=== PATIENT | male | born 1995 | race Caucasian/White ===

== ENCOUNTER 2022-07-28 14:06 | Emergency (ER) | payer MEDICAID, SELFPAY ==
--- NOTE | ~2022-07-28 | XR_ITS ---
EXAMINATION: XR CHEST CLINICAL INFORMATION: Chest pain COMPARISON: None TECHNIQUE: Frontal view of the chest was obtained. FINDINGS: No significant abnormality is noted involving the heart, lungs, mediastinum, bony thorax or soft tissues. XR/XR chest 1V IMPRESSION: No radiographic evidence of acute cardiopulmonary disease.
[2022-07-28 15:04] VITALS: BP 151/90; PULSE 87; RESP 16; TEMP 36.6; O2SAT 99; BMI 25.7
--- NOTE | 2022-07-28 15:04 | ECG_ITS ---
Test Reason : cx pain/ sob Blood Pressure : / mmHG Vent. Rate : 076 BPM Atrial Rate : 076 BPM P-R Int : 140 ms QRS Dur : 086 ms QT Int : 356 ms P-R-T Axes : 044 -06 023 degrees QTc Int : 400 ms Sinus rhythm with marked sinus arrhythmia Minimal voltage criteria for LVH, may be normal variant ( R in aVL ) Borderline ECG No previous ECGs available Referred By: Derek Kim Electronically Signed By:NISHA MCGEE MD
--- NOTE | 2022-07-28 15:06 | ED_ITS ---
HPI - General Adult General Chief complaint: Chest Pain <TAQUERIA Valle - Last Filed: 07/28/22 20:21> Stated complaint: SOB/Chest pain/Fever-marisela <TAQUERIA Valle - Last Filed: 07/28/22 20:21> Time Seen by Provider: 07/28/22 19:20 <TAQUERIA Valle - Last Filed: 07/28/22 20:21> Source: patient <Zainab Fierro CNP - Last Filed: 07/28/22 20:22> Mode of arrival: wheelchair <Zainab Fierro CNP - Last Filed: 07/28/22 20:22> Limitations: no limitations <Zainab Fierro CNP - Last Filed: 07/28/22 20:22> History of Present Illness HPI narrative: Patient is a 27-year-old male who presents to the emergency department for evaluation of chest pain and shortness of breath. He reports at 22:00 he noted onset of left anterior chest pain with intermittent mild shortness of breath this. He began feeling anxious about this. He presented to emergency department today to have evaluation. He is wheelchair-bound due to spina bifida, 2 days ago he was on a 5 hour flight. Denies any known sick contacts, no upper respiratory symptoms. Denies personal history of DVT/PE/malignancy, tobacco usage, coagulation disorders, use of anticoagulant medications. Denies any leg pain, leg swelling, leg redness. <Zainab Fierro CNP - Last Filed: 07/28/22 20:22> Related Data Allergies/adverse reactions: Allergies Allergy/AdvReac Type Severity Reaction Status Date / Time latex Allergy rash Verified 07/28/22 19:29 <TAQUERIA Valle - Last Filed: 07/28/22 20:21> Review of Systems Review of Systems: Constitutional : No Weight loss, No Fever, No Chills ENT/Mouth :? No sore throat, No Rhinorrhea Eyes: No Eye Pain, No Swelling Cardiovascular : pos Chest Pain, pos SOB, no Dyspnea on Exertion, No Orthopnea, No Edema, No Palpitations Respiratory : No Cough, No Sputum Gastrointestinal : No Nausea, No Vomiting, No Diarrhea, No abdominal Pain, No Hematochezia, No Melena Genitourinary : No Dysuria, No Urinary Frequency Musculoskeletal : No joint pain, No Myalgias, No Joint Swelling Skin : No Skin Lesions, No rash Neuro : No Weakness, No Numbness, No Dizziness, No Headache Psych : No Anxiety/Panic, No Depression Heme/Lymph: No Bruising, No Lymphadenopathy Endocrine : No Polyuria, No Polydipsia <Zainab Fierro CNP - Last Filed: 07/28/22 20:22> Yes all other systems are reviewed and are negative <Zainab Fierro CNP - Last Filed: 07/28/22 20:22> [facility] Past Medical History Attestation statement: The following information was validated with the patient. <Zainab Fierro CNP - Last Filed: 07/28/22 20:22> Source: old records reviewed <Zainab Fierro CNP - Last Filed: 07/28/22 20:22> Medical History: Medical History Asthma Spina bifida <TAQUERIA Valle - Last Filed: 07/28/22 20:21> Social History Social History: Social History Alcohol intake: current Alcohol intake frequency: a few times a week Smoked in Last 30 Days: No Use of substances other than those prescribed or required for medical reasons: Yes Substance Use Type: Marijuana Substance Use Frequency: Daily Advance Directives: No Advance Directives Information Provided: Yes <TAQUERIA Valle - Last Filed: 07/28/22 20:21> Physical Exam ED Vital Signs: Vital Signs - 24 hr 07/28/22 15:04 07/28/22 19:31 Temperature 97.8 F 98 F Pulse Rate 87 78 Respiratory Rate 16 Blood Pressure 151/90 H 142/88 H Pulse Oximetry 99 99 Oxygen Delivery Method Room Air Room Air BMI result Body Mass Index 25.7 <TAQUERIA Valle - Last Filed: 07/28/22 20:21> Vital Signs - 24 hr 07/28/22 15:04 07/28/22 19:31 Temperature 97.8 F 98 F Pulse Rate 87 78 Respiratory Rate 16 Blood Pressure 151/90 H 142/88 H Pulse Oximetry 99 99 Oxygen Delivery Method Room Air Room Air BMI result Body Mass Index 25.7 <Zainab Fierro CNP - Last Filed: 07/28/22 20:22> Appearance: Alert.?Oriented to person, place and time. No acute distress.?Normal affect. Eyes: Pupils equal, round and reactive to light.? ENT: Pharynx normal.?? Neck: Normal inspection.? Neck supple.?? CVS: Heart sounds normal. Normal heart rate and rhythm.? Pulses normal.?? Respiratory: No respiratory distress.? Lung sounds clear to auscultation bilaterally?? Abdomen: Soft and non-tender. Normoactive bowel sounds. Skin: Skin warm and dry.? Normal skin color.? Extremities: No lower extremity edema.? No calf ttp? Neuro: Moves all extremities spontaneously. Sensation intact bilaterally. No focal neuro deficits. <Zainab Fierro CNP - Last Filed: 07/28/22 20:22> Course Course Course Narrative: RME: 27 yold male with spina bifida presents to the ED for chest pain and shortness of breath this morning. patient had a long travel 5 hours plane flight on wednesday coming to [facility]. patient states no leg swelling. lower extremities negative for any swelling, pitting edema, or calf tenderness. labs, chest xray, and EkG ordered <TAQUERIA Valle - Last Filed: 07/28/22 20:21> Reevaluation(s) Reevaluation #1: CBC and CMP are overall unremarkable. No evidence of leukocytosis, anemia, acute kidney injury. D-dimer <150, not consistent with pulmonary embolism. Viral testing is negative. Chest x-ray without acute cardiopulmonary process, not consistent with pneumonia. EKG revealing sinus rhythm, no acute ischemic findings, troponin <3.5, not consistent with ACS. At this time suspect symptoms to be most likely secondary to muscular strain. Discussed plan of care for discharge home, acetaminophen/ibuprofen, ice/heat to the area. Reviewed worrisome signs and symptoms that would warrant re-evaluation in the emergency department. Advised outpatient follow-up with primary care provider within 2-3 days for persistent symptoms. All questions answered. Patient stable for discharge. <Zainab Fierro CNP - Last Filed: 07/28/22 20:22> Medical Decision Making Medical Decision Making MDM Narrative: Patient is a 27-year-old male with past medical history of spina bifida, childhood asthma presenting to emergency department for evaluation of chest pain and shortness or breath. At the time examination he is overall well-appearing. Vital signs are stable. Afebrile without tachycardia, tachypnea, or hypoxia. Physical examination is benign. Chest pain is localized to point tenderness just beneath the left areola. At this time he states that the pain is very minimal in only felt upon palpation, in currently denying shortness of breath. Will obtain CBC to evaluate for leukocytosis/ anemia, CMP to evaluate for abnormal electrolytes /abnormal renal function/ abnormal hepatic/biliary, EKG/ troponin to evaluate for ischemia/ACS, D-dimer, Chest x-ray to evaluate for consolidation/ infiltrate/ mass/ pulmonary congestion.. <Zainab Fierro CNP - Last Filed: 07/28/22 20:22> Differential Diagnosis Differential Diagnoses: The differential diagnosis associated with the presentation includes (Pulmonary embolism, pneumonia, viral upper respiratory infection, musculoskeletal strain of the chest wall, ACS) <Zainab Fierro CNP - Last Filed: 07/28/22 20:22> Lab Data MDM Lab Attestation statement: I reviewed the patient's lab results. <Zainab Fierro CNP - Last Filed: 07/28/22 20:22> Result Diagrams: 07/28/22 15:20 07/28/22 15:20 <TAQUERIA Valle - Last Filed: 07/28/22 20:21> Labs: Lab Results 07/28/22 07/28/22 07/28/22 Range/Units 15:20 15:20 15:20 WBC 7.0 (4.8-10.8) X10*3/uL RBC 5.31 (4.60-5.80) X10*6/uL Hgb 16.7 (14.0-18.0) g/dl Hct 48.7 (42.0-52.0) % MCV 91.7 (80.0-98.0) fL MCH 31.5 (27.0-33.0) pg MCHC 34.3 (31.0-36.0) g/dl RDW 12.1 (11.0-16.0) % Plt Count 292 (160-400) X10*3/uL MPV 8.9 L (9.4-12.4) fL Immature Gran % (Auto) 0.1 (0.0-0.4) % Neut % (Auto) 66.5 (45-73) % Lymph % (Auto) 26.3 (20-40) % Mcnairy % (Auto) 5.4 (2-11) % Eos % (Auto) 1.3 (0-4) % Baso % (Auto) 0.4 (0-2) % Lymph # (Auto) 1.8 (1.2-4.9) X10*3/uL [place] # (Auto) 0.4 (0.1-1.2) X10*3/uL Eos # (Auto) 0.1 (0.0-0.4) X10*3/uL Baso # (Auto) 0.0 (0.0-0.2) X10*3/uL Abs Immat Gran (auto) 0.01 (0.00-0.03) X10*3/uL Absolute Neuts (auto) 4.7 (2.0-8.3) x10*3/uL Absolute Nucleated RBC 0.000 (0.0-0.012) X10*3/uL Nucleated RBC % (auto) 0.0 (0.0-0.2) /100WBC PT 10.8 (10.0-13.1) SEC INR 0.9 (0.9-1.1) APTT 32.1 (26.0-36.4) SEC D-Dimer High Sensitivty < 150 NG/ML Sodium 139 (135-145) mmol/L Potassium 3.9 (3.3-5.1) mmol/L Chloride 103 (96-108) mmol/L Carbon Dioxide 26 (22-29) mmol/L Anion Gap 14 (12-20) BUN 13 (9-16) mg/dL Creatinine 0.96 (0.5-1.4) mg/dL Estim Creat Clear Calc 127.9 Estimated GFR > 60 Random Glucose 104 (60-115) mg/dL Calcium 9.8 (8.4-10.2) mg/dL Total Bilirubin 0.7 (0.0-1.0) mg/dL AST 24 (5-37) U/L ALT 31 (0-40) U/L Alkaline Phosphatase 91 (39-117) U/L Troponin I High Sens (<3.5-35.0) ng/L B-Natriuretic Peptide (<100) pg/mL Total Protein 8.2 H (6.5-8.0) g/dL Albumin 4.8 (3.5-5.0) g/dL Influenza Type A (PCR) (Negative) Influenza Type B (PCR) (Negative) RSV RNA Qual (PCR) (Negative) SARS-CoV-2 RNA (RT-PCR) (Negative) 07/28/22 07/28/22 07/28/22 Range/Units 15:20 15:20 15:20 WBC (4.8-10.8) X10*3/uL RBC (4.60-5.80) X10*6/uL Hgb (14.0-18.0) g/dl Hct (42.0-52.0) % MCV (80.0-98.0) fL MCH (27.0-33.0) pg MCHC (31.0-36.0) g/dl RDW (11.0-16.0) % Plt Count (160-400) X10*3/uL MPV (9.4-12.4) fL Immature Gran % (Auto) (0.0-0.4) % Neut % (Auto) (45-73) % Lymph % (Auto) (20-40) % Mcnairy % (Auto) (2-11) % Eos % (Auto) (0-4) % Baso % (Auto) (0-2) % Lymph # (Auto) (1.2-4.9) X10*3/uL [place] # (Auto) (0.1-1.2) X10*3/uL Eos # (Auto) (0.0-0.4) X10*3/uL Baso # (Auto) (0.0-0.2) X10*3/uL Abs Immat Gran (auto) (0.00-0.03) X10*3/uL Absolute Neuts (auto) (2.0-8.3) x10*3/uL Absolute Nucleated RBC (0.0-0.012) X10*3/uL Nucleated RBC % (auto) (0.0-0.2) /100WBC PT (10.0-13.1) SEC INR (0.9-1.1) APTT (26.0-36.4) SEC D-Dimer High Sensitivty NG/ML Sodium (135-145) mmol/L Potassium (3.3-5.1) mmol/L Chloride (96-108) mmol/L Carbon Dioxide (22-29) mmol/L Anion Gap (12-20) BUN (9-16) mg/dL Creatinine (0.5-1.4) mg/dL Estim Creat Clear Calc Estimated GFR Random Glucose (60-115) mg/dL Calcium (8.4-10.2) mg/dL Total Bilirubin (0.0-1.0) mg/dL AST (5-37) U/L ALT (0-40) U/L Alkaline Phosphatase (39-117) U/L Troponin I High Sens < 3.5 (<3.5-35.0) ng/L B-Natriuretic Peptide < 10 (<100) pg/mL Total Protein (6.5-8.0) g/dL Albumin (3.5-5.0) g/dL Influenza Type A (PCR) NEGATIVE (Negative) Influenza Type B (PCR) NEGATIVE (Negative) RSV RNA Qual (PCR) NEGATIVE (Negative) SARS-CoV-2 RNA (RT-PCR) NEGATIVE (Negative) <TAQUERIA Valle - Last Filed: 07/28/22 20:21> Lab Results 07/28/22 07/28/22 07/28/22 Range/Units 15:20 15:20 15:20 WBC 7.0 (4.8-10.8) X10*3/uL RBC 5.31 (4.60-5.80) X10*6/uL Hgb 16.7 (14.0-18.0) g/dl Hct 48.7 (42.0-52.0) % MCV 91.7 (80.0-98.0) fL MCH 31.5 (27.0-33.0) pg MCHC 34.3 (31.0-36.0) g/dl RDW 12.1 (11.0-16.0) % Plt Count 292 (160-400) X10*3/uL MPV 8.9 L (9.4-12.4) fL Immature Gran % (Auto) 0.1 (0.0-0.4) % Neut % (Auto) 66.5 (45-73) % Lymph % (Auto) 26.3 (20-40) % Mcnairy % (Auto) 5.4 (2-11) % Eos % (Auto) 1.3 (0-4) % Baso % (Auto) 0.4 (0-2) % Lymph # (Auto) 1.8 (1.2-4.9) X10*3/uL [place]nairy # (Auto) 0.4 (0.1-1.2) X10*3/uL Eos # (Auto) 0.1 (0.0-0.4) X10*3/uL Baso # (Auto) 0.0 (0.0-0.2) X10*3/uL Abs Immat Gran (auto) 0.01 (0.00-0.03) X10*3/uL Absolute Neuts (auto) 4.7 (2.0-8.3) x10*3/uL Absolute Nucleated RBC 0.000 (0.0-0.012) X10*3/uL Nucleated RBC % (auto) 0.0 (0.0-0.2) /100WBC PT 10.8 (10.0-13.1) SEC INR 0.9 (0.9-1.1) APTT 32.1 (26.0-36.4) SEC D-Dimer High Sensitivty < 150 NG/ML Sodium 139 (135-145) mmol/L Potassium 3.9 (3.3-5.1) mmol/L Chloride 103 (96-108) mmol/L Carbon Dioxide 26 (22-29) mmol/L Anion Gap 14 (12-20) BUN 13 (9-16) mg/dL Creatinine 0.96 (0.5-1.4) mg/dL Estim Creat Clear Calc 127.9 Estimated GFR > 60 Random Glucose 104 (60-115) mg/dL Calcium 9.8 (8.4-10.2) mg/dL Total Bilirubin 0.7 (0.0-1.0) mg/dL AST 24 (5-37) U/L ALT 31 (0-40) U/L Alkaline Phosphatase 91 (39-117) U/L Troponin I High Sens (<3.5-35.0) ng/L B-Natriuretic Peptide (<100) pg/mL Total Protein 8.2 H (6.5-8.0) g/dL Albumin 4.8 (3.5-5.0) g/dL Influenza Type A (PCR) (Negative) Influenza Type B (PCR) (Negative) RSV RNA Qual (PCR) (Negative) SARS-CoV-2 RNA (RT-PCR) (Negative) 07/28/22 07/28/22 07/28/22 Range/Units 15:20 15:20 15:20 WBC (4.8-10.8) X10*3/uL RBC (4.60-5.80) X10*6/uL Hgb (14.0-18.0) g/dl Hct (42.0-52.0) % MCV (80.0-98.0) fL MCH (27.0-33.0) pg MCHC (31.0-36.0) g/dl RDW (11.0-16.0) % Plt Count (160-400) X10*3/uL MPV (9.4-12.4) fL Immature Gran % (Auto) (0.0-0.4) % Neut % (Auto) (45-73) % Lymph % (Auto) (20-40) % Mcnairy % (Auto) (2-11) % Eos % (Auto) (0-4) % Baso % (Auto) (0-2) % Lymph # (Auto) (1.2-4.9) X10*3/uL [place] # (Auto) (0.1-1.2) X10*3/uL Eos # (Auto) (0.0-0.4) X10*3/uL Baso # (Auto) (0.0-0.2) X10*3/uL Abs Immat Gran (auto) (0.00-0.03) X10*3/uL Absolute Neuts (auto) (2.0-8.3) x10*3/uL Absolute Nucleated RBC (0.0-0.012) X10*3/uL Nucleated RBC % (auto) (0.0-0.2) /100WBC PT (10.0-13.1) SEC INR (0.9-1.1) APTT (26.0-36.4) SEC D-Dimer High Sensitivty NG/ML Sodium (135-145) mmol/L Potassium (3.3-5.1) mmol/L Chloride (96-108) mmol/L Carbon Dioxide (22-29) mmol/L Anion Gap (12-20) BUN (9-16) mg/dL Creatinine (0.5-1.4) mg/dL Estim Creat Clear Calc Estimated GFR Random Glucose (60-115) mg/dL Calcium (8.4-10.2) mg/dL Total Bilirubin (0.0-1.0) mg/dL AST (5-37) U/L ALT (0-40) U/L Alkaline Phosphatase (39-117) U/L Troponin I High Sens < 3.5 (<3.5-35.0) ng/L B-Natriuretic Peptide < 10 (<100) pg/mL Total Protein (6.5-8.0) g/dL Albumin (3.5-5.0) g/dL Influenza Type A (PCR) NEGATIVE (Negative) Influenza Type B (PCR) NEGATIVE (Negative) RSV RNA Qual (PCR) NEGATIVE (Negative) SARS-CoV-2 RNA (RT-PCR) NEGATIVE (Negative) <Zainab Fierro CNP - Last Filed: 07/28/22 20:22> Independent Interpretation I performed an independent interpretation of an: EKG and Plain X-Ray (I have personally interpreted chest x-ray and agree with radiologist impression.) <Zainab Fierro CNP - Last Filed: 07/28/22 20:22> Interpretation: Rate: 76 Rhythm: Sinus rhythm with arrhythmia [place]:? Normal Normal P waves.? Normal FELICIANO.?? Normal QRS complex.?? ST T wave :??No ST elevation, no ST depression, no T-wave inversion qTC: 400 prior studies:? None prior available for review The study has been interpreted contemporaneously by me. <Zainab Fierro CNP - Last Filed: 07/28/22 20:22> Radiology Impression Discussion of test interpretation with radiology: I have reviewed the radiologist's reading. <Zainab Fierro CNP - Last Filed: 07/28/22 20:22> Radiologist Impression: XR/XR chest 1V IMPRESSION: No radiographic evidence of acute cardiopulmonary disease. <Zainab Fierro CNP - Last Filed: 07/28/22 20:22> Tests considered The following testing was considered but not selected: Considered CT angio of the chest to evaluate for pulmonary embolism, however PERC negative, and D-dimer <150. <Zainab Fierro CNP - Last Filed: 07/28/22 20:22> Prescription Management I considered prescription management with: Pain Medication <Zainab Fierro CNP - Last Filed: 07/28/22 20:22> Discharge Plan Discharge Clinical Impression: Chest pain <TAQUERIA Valle - Last Filed: 07/28/22 20:21> Patient Disposition: Home, Self-Care <TAQUERIA Valle - Last Filed: 07/28/22 20:21> Instructions: Noncardiac Chest Pain (ED) <TAQUERIA Valle - Last Filed: 07/28/22 20:21> Additional Instructions: As we discussed, your blood work today was normal. Your testing for COVID-19, flu, and RSV were negative. Your chest x-ray was normal. Your pain is most likely a muscular strain. You can take ibuprofen 200 mg, 3 tablets (600mg) every 6-8 hours as needed for pain, in addition to Tylenol 500 mg, 2 tablets (1,000mg) every 4-6 hours as needed for pain, but not to exceed 3 doses daily (3,000mg).? Please return back to emergency department with any new or worsening symptoms or concerns. Contact your primary care provider to arrange for a follow-up visit within the next 2 days <TAQUERIA Valle - Last Filed: 07/28/22 20:21> Referrals: Physician,Unknown J [Primary Care Provider] - <TAQUERIA Valle - Last Filed: 07/28/22 20:21> Interventions: ED Discharge Assessment Last Done: 07/28/22 20:01 <TAQUERIA Valle - Last Filed: 07/28/22 20:21> Discharge Date/Time: 07/28/22 20:02 <TAQUERIA Valle - Last Filed: 07/28/22 20:21>
[2022-07-28 15:25] LABS: MANUAL DIFF FLAG NO
[2022-07-28 15:28] LABS: Basophils Percent Auto 0.4 % (0-2); Eosinophils Absolute Auto 0.1 X10*3/uL (0.0-0.4); Eosinophils Percent Auto 1.3 % (0-4); Hematocrit 48.7 % (42.0-52.0); Hemoglobin 16.7 g/dl (14.0-18.0); Imm Gran Abs Auto 0.01 X10*3/uL (0.00-0.03); Imm Gran Pct Auto 0.1 % (0.0-0.4); Lymphocytes Absolute Auto 1.8 X10*3/uL (1.2-4.9); Lymphocytes Percent Auto 26.3 % (20-40); Mean Corpuscular HGB Conc 34.3 g/dl (31.0-36.0); Mean Corpuscular Hemoglobin 31.5 pg (27.0-33.0); Mean Corpuscular Volume 91.7 fL (80.0-98.0); Mean Platelet Volume 8.9 fL (9.4-12.4); Monocytes Absolute Auto 0.4 X10*3/uL (0.1-1.2); Monocytes Percent Auto 5.4 % (2-11); Neutrophils Absolute Auto 4.7 x10*3/uL (2.0-8.3); Neutrophils Percent Auto 66.5 % (45-73); Platelet Count 292 X10*3/uL (160-400); Red Blood Count 5.31 X10*6/uL (4.60-5.80); Red Cell Distribution Width 12.1 % (11.0-16.0)
[2022-07-28 15:35] LABS: INTERNATIONAL NORM RATIO 0.9 (0.9-1.1); Prothrombin Time 10.8 SEC (10.0-13.1)
[2022-07-28 15:37] LABS: Partial Thromboplastin Time 32.1 SEC (26.0-36.4)
[2022-07-28 15:38] LABS: D Dimer High Sensitivity < 150 NG/ML
[2022-07-28 15:44] LABS: Alanine Aminotransferase 31 U/L (0-40); Albumin Level 4.8 g/dL (3.5-5.0); Alkaline Phosphatase 91 U/L (39-117); Anion Gap 14 (12-20); Aspartate Amino Transferase 24 U/L (5-37); Bilirubin Total 0.7 mg/dL (0.0-1.0); Blood Urea Nitrogen 13 mg/dL (9-16); Calcium 9.8 mg/dL (8.4-10.2); Carbon Dioxide 26 mmol/L (22-29); Chloride 103 mmol/L (96-108); Creatinine Clr Calc Pharmacy 127.9; Estimated Glomerular Filt Rate > 60; Glucose Random 104 mg/dL (60-115); Potassium 3.9 mmol/L (3.3-5.1); Sodium 139 mmol/L (135-145); Total Protein 8.2 g/dL (6.5-8.0)
[2022-07-28 15:50] LABS: B Type Natriuretic Peptide < 10 pg/mL (<100)
[2022-07-28 15:54] LABS: Troponin-I High Sensitivity < 3.5 ng/L (<3.5-35.0)
[2022-07-28 16:08] LABS: Influenza A PCR NEGATIVE (Negative); Influenza B PCR NEGATIVE (Negative); Resp Syncy Virus RNA Qual PCR NEGATIVE (Negative); SARS COV2 PCR INHOUSE NEGATIVE (Negative)
[2022-07-28 19:31] VITALS: BP 142/88; PULSE 78; TEMP 36.6; O2SAT 99
--- NOTE | 2022-07-28 19:46 | PC.NURSE ---
patient a&ox3, vss, pt denies pain at this time, lungs clear/diminished, provider at bedside- workup negative and will discharge home.
== END 2022-07-28 20:02 | disposition home or self-care (01) ==
PROVIDERS: Physician Assistant; Emergency Provider Emergency Medicine Emergency Medical Services
DX: R07.89 Other chest pain (principal); R06.02 Shortness of breath; R50.9 Fever, unspecified; Z20.822 Contact with and (suspected) exposure to COVID-19; Z20.828 Contact with and (suspected) exposure to other viral communicable diseases; Z79.899 Other long term (current) drug therapy
CPT/HCPCS: 0241U; 36415; 71045; 80053; 83880; 84484; 85025; 85379; 85610; 85730; 93005; 99283; 99284

== ENCOUNTER 2025-04-28 20:25 | Emergency (ER) | payer OTHER, MEDICAID, SELFPAY ==
--- NOTE | ~2025-04-28 | XR_ITS ---
CLINICAL HISTORY: G-tube Dislodgment; ? internal remnant 1 view abdomen Comparison: None provided Findings: No pneumoperitoneum or pneumatosis. No abnormal calcifications. No acute fractures. IMPRESSION: The bowel gas pattern is within normal limits This document has been electronically signed by: Bjorn Puri MD on 04/29/2025 03:44:54
--- NOTE | ~2025-04-28 | CT_ITS ---
CLINICAL HISTORY: J-tube malfunction; Retained device CT abdomen and pelvis with contrast Comparison: 04/29/2025 Findings: No consolidation or effusion. The gallbladder and solid organs are within normal limits. No renal stones. No bowel obstruction, pneumoperitoneum, or pneumatosis. J-tube is looped in the cecum. This underlies a tract to the skin surface. Pelvic contents unremarkable. Normal appendix. No acute fracture. IMPRESSION: J-tube looped in cecum. This document has been electronically signed by: Bjorn Puri MD on 04/29/2025 06:19:37
[2025-04-28 20:29] VITALS: BP 159/91; PULSE 131; RESP 20; TEMP 36.9; O2SAT 99; BMI 29.8
--- NOTE | 2025-04-28 20:30 | ED_ITS ---
HPI - General Adult General Chief complaint: General Medical Stated complaint: medical administrative technician on stomach broke Time Seen by Provider: 04/29/25 00:49 Source: patient Mode of arrival: ambulatory Limitations: no limitations History of Present Illness ED Provider: Flo MENG HPI narrative: The patient is a 29-year-old wheelchair-bound male secondary to a history of spina bifida, presenting to the ED reporting he has a well-established J-tube for the past 20 years, most recently had a Leland button in place. Patient reports just prior to arrival in the ED he noted the Ellen button was no longer in place. Patient states he was not able to find the device anywhere at home and became concerned that it had broken and gone into his abdomen. The patient denies any nausea, vomiting, abdominal pain, or other acute somatic complaint. Related Data Previous Rx's ?Medication ?Instructions ?Recorded polyethylene glycol 3350 17 17 g PO TID 2 days #102 gr ams 04/29/25 gram/dose oral powder (Miralax) Allergies Allergy/AdvReac Type Severity Reaction Status Date / Time latex Allergy rash Verified 04/28/25 20:31 Review of Systems 2 Review of Systems: Yes all other systems are reviewed and are negative PMFSH Past Medical History Medical History Asthma Spina bifida Social History Social History Alcohol intake: current Alcohol intake frequency: a few times a week Substance Use Type: Marijuana Advance Directives: No Advance Directives Information Provided: Yes Do you have a plan to hurt others: No Plan Physical Exam ED Vital Signs: Vital Signs - 24 hr 04/28/25 20:29 04/29/25 01:19 04/29/25 06:10 Temperature 98.4 F 97.8 F 97.7 F Pulse Rate 131 H 91 87 Respiratory Rate 20 20 18 Blood Pressure 159/91 H 128/89 128/80 Pulse Oximetry 99 95 95 Oxygen Delivery Method Room Air Room Air Room Air 04/29/25 09:20 Temperature Pulse Rate 93 Respiratory Rate 16 Blood Pressure 132/86 Pulse Oximetry 97 Oxygen Delivery Method Room Air BMI result Body Mass Index 29.8 CONSTITUTIONAL: The patient appears non-toxic, well nourished and in no acute distress. Vital signs as documented. HEAD: Atraumatic, normocephalic. EYES: EOMs grossly intact, pupils equal, conjunctiva clear, no exudate. ENT: Nares patent, no discharge. Airway patent, no audible stridor, visible mucosa is pink and moist without noted lesions. NECK: Trachea is midline, no obvious masses or gross abnormalities. CHEST: Symmetric movement, normal appearance. LUNGS: LS present and CTAB, no w/r/r. Non-labored work of breathing. CARDIAC: Regular Rhythm, S1/S2 appreciated, no murmurs, rubs or gallops. ABDOMEN: Abdomen soft and non-tender x4 quadrants, no palpable masses or organomegaly. There is an ostomy noted in the right abdomen consistent with 4 day history of G-tube, no significant drainage or erythema. : Deferred. EXTREMITIES: Normal tone, moves all extremities spontaneously without reported pain. No obvious acute injury or deformity noted. NEURO: Alert and oriented x3, CN II-XII appear grossly intact. Cerebellar Functioning grossly intact. No obvious sensory or motor deficits. Speech clear and appropriate. PSYCH: normal affect, appropriate eye contact, fluid speech, with appropriate response to questioning. No reported suicidality or homicidality. SKIN: Warm, dry, color appropriate, normal turgor. No rashes noted. Course Course Course Narrative: This is a rapid medical exam performed by Rosalia Justice NP: Additional HPI, ROS, PE not included below will be deferred to primary provider. Patient is a 29y/o M with history of spina bifida presenting to the ED stating that just prior to arrival he noted his G tube had dislodged. Denies pain. Reports feeling anxious, HR 140-150 in triage. Has had around 20 years, is not new. Plan: EKG Medications Administered Discontinued Medications Generic Name Dose Route Start Last Admin Trade Name Freq PRN Reason Stop Dose Admin Iohexol 100 ml 04/29/25 05:29 04/29/25 05:29 Iohexol 350 Mg/Ml 100 Ml Infus..Btl IV 04/29/25 05:30 85 ml ONCE ONE Administration Medical Decision Making Medical Decision Making [facility] Narrative: 2:22 AM 04/29/2025 (Kenneth MENG): The patient is a 29-year-old wheelchair- bound male secondary to a history of spina bifida, presenting to the ED reporting he has a well-established J-tube for the past 20 years, most recently had a Leland button in place. Patient reports just prior to arrival in the ED he noted the Ellen button was no longer in place. Patient states he was not able to find the device anywhere at home and became concerned that it had broken and gone into his abdomen. The patient denies any nausea, vomiting, abdominal pain, or other acute somatic complaint. On exam patient has a well-appearing ostomy in the right abdomen, no abdominal tenderness. Patient most likely suffered external dislodgement of the device, however we will obtain KUB to confirm no retention of internal parts. Pending normal KUB the patient will have the tube replaced. 3:02 AM 04/29/2025 (Kenneth MENG): The patient's KUB was reviewed by this provider and demonstrates a retained coil J-tube within the abdominal cavity. The patient was re-evaluated, per the patient report this specificl J-tube has been in place for the past 10 years, the patient was previously followed by Dr. Wiley from GI at [facility], however patient states he stopped following with a his GI physician greater than 2-3 years ago. Does not currently follow up with any GI physician, and does not currently have a PCP. Patient continues to have no pain, no obstructive bowel pattern on KUB for this provider's interpretation. We will await Radiology interpretation and contact GI to ensure there is nothing to do emergently. 3:57 AM 04/29/2025 (Kenneth MENG): Discussed patient's case with Dr. Trujillo from GI, Dr. Trujillo advises based on the depth it is unlikely he will be able to retrieve by endoscopy, and based on the coiled nature of the tube it is unlikely to pass naturally. Dr. Trujillo recommends CT to further clarify positioning, followed by surgical consultation. Dr. Trujillo advises he will watch for and review the CT imaging. Dr. Trujillo further advises that if surgery consultation shows no indication for surgical intervention, patient should be admitted to medicine for serial KUBs to ensure progression/passage. 6:34 AM 04/29/2025 (Kenneth MENG): The patient's CT has resulted and shows his J-tube is looped in his cecum with no evidence of associated bowel obstruction, pneumatosis, or pneumoperitoneum. A message has been sent to Dr. Lord from the surgical service requesting surgical consultation. Awaiting response. 9:00 AM 04/29/2025 (Dr. Clifton Hill): Spoke with Dr. Lord who feels that the remnant with the tube can be left in place and that is going to pass by itself, I am going to reach out to GI and sent a text to Dr. Trujillo, I also looked at patient's [facility] medical records he hasChait Trapdoor 10.2 F24 tube that was inserted by Dr. Wiley, patient re-examined, the insertion site is clean and dry 9:02 AM 04/29/2025 (Dr. Clifton Hill): stated to give patient MiraLax and push p.o. fluids repeat x-ray in 24 hours and see if it shifts, will discuss this with the patient Admission/Observation Consideration of admission/observation: Escalation of care including admission/observation considered Consult Healthcare Provider Management of the patient was discussed with: Hospitalist and Geography Department Chair Lab Data MDM Lab Attestation statement: I reviewed the patient's lab results. 04/29/25 04:59 04/29/25 04:59 Labs: Lab Results 04/29/25 Range/Units 04:59 WBC 8.8 (4.8-10.8) X10*3/uL RBC 4.76 (4.60-5.80) X10*6/uL Hgb 14.4 (14.0-18.0) g/dl Hct 42.0 (42.0-52.0) % MCV 88.2 (80.0-98.0) fL MCH 30.3 (27.0-33.0) pg MCHC 34.3 (31.0-36.0) g/dl RDW 12.5 (11.0-16.0) % Plt Count 324 (160-400) X10*3/uL MPV 8.4 L (9.4-12.4) fL Immature Gran % (Auto) 0.2 (0.0-0.4) % Neut % (Auto) 61.6 (45-73) % Lymph % (Auto) 23.6 (20-40) % Park % (Auto) 8.9 (2-11) % Eos % (Auto) 5.1 H (0-4) % Baso % (Auto) 0.6 (0-2) % Lymph # (Auto) 2.1 (1.2-4.9) X10*3/uL Park # (Auto) 0.8 (0.1-1.2) X10*3/uL Eos # (Auto) 0.5 H (0.0-0.4) X10*3/uL Baso # (Auto) 0.1 (0.0-0.2) X10*3/uL Abs Immat Gran (auto) 0.02 (0.00-0.03) X10*3/uL Absolute Neuts (auto) 5.4 (2.0-8.3) x10*3/uL Absolute Nucleated RBC 0.000 (0.0-0.012) X10*3/uL Nucleated RBC % (auto) 0.0 (0.0-0.2) /100WBC Sodium 137 (135-145) mmol/L Potassium 4.0 (3.3-5.1) mmol/L Chloride 106 (96-108) mmol/L Carbon Dioxide 21 L (22-29) mmol/L Anion Gap 14 (12-20) BUN 13 (9-16) mg/dL Creatinine 0.79 (0.5-1.4) mg/dL Estim Creat Clear Calc 170.2 Estimated GFR > 60 Random Glucose 103 (60-115) mg/dL Calcium 9.2 D (8.4-10.2) mg/dL Total Bilirubin 0.4 (0.0-1.0) mg/dL AST 28 (5-37) U/L ALT 40 (0-40) U/L Alkaline Phosphatase 93 (39-117) U/L Total Protein 7.8 (6.5-8.0) g/dL Albumin 4.4 (3.5-5.0) g/dL Radiology Impression Discussion of test interpretation with radiology: I have reviewed the radiologist's reading. Radiologist Impression: CLINICAL HISTORY: G-tube Dislodgment; ? internal remnant 1 view abdomen Comparison: None provided Findings: No pneumoperitoneum or pneumatosis. No abnormal calcifications. No acute fractures. IMPRESSION: The bowel gas pattern is within normal limits This document has been electronically signed by: Bjorn Puri MD on 04/29/2025 03:44:54 Discharge Plan Discharge Clinical Impression: Foreign body in large intestine Patient Disposition: Home, Self-Care Additional Instructions: Dissolve MiraLax in 8 oz on water drank at least 3 times today, and then once or twice tomorrow morning and then come into the ER for repeat abdominal x-rays to see if the tube has moved. As discussed you had a CAT scan, blood work and I discussed the case with both clinical operations specialist and the surgeon. Prescriptions: New polyethylene glycol 3350 [Miralax] 17 gram/dose powder 17 g PO TID 2 Days Qty: 102 0RF Print Language: Welsh
--- NOTE | 2025-04-28 20:32 | ECG_ITS ---
Test Reason : TACHY Blood Pressure : */* mmHG Vent. Rate : 124 BPM Atrial Rate : 124 BPM P-R Int : 140 ms QRS Dur : 82 ms QT Int : 310 ms P-R-T Axes : 22 -9 28 degrees QTcB Int : 445 ms Sinus tachycardia Minimal voltage criteria for LVH, may be normal variant ( R in aVL ) Cannot rule out Anteroseptal infarct , age undetermined Abnormal ECG When compared with ECG of 28-Jul-2022 15:09, Vent. rate has increased by 48 bpm Minimal criteria for Anteroseptal infarct are now Present Referred By: Brittany Justice Electronically Signed By: Warren Puente
--- OUTSIDE RECORDS SUMMARY | 2025-04-29 00:37 | XMS_ITS | Encounter Summary ---
Author Organization [facility] Address [address] [place] [phone] Phone Care Team Providers Care Tying Machine Operator Lumber Name Role Phone Cely Mora MD Primary Care Provider [phone] Encounter Details Date Type Department Care Team (Late st Contact Info) Description 05/21/2010 Documentation [facility] [place] Family Medicine [address] [place] [address] Family Medicine, Physician [address] [place], [place] [phone] Social History Tobacco Use Types Packs/Day Years Used Date Smoking Tobacco: Never Assessed Sex and Gender Information Value Date Recorded Sex Assigned at Not on file Legal Sex Male 5:24 PM EDT Gender Identity Not on file Sexual Orientation Not on file documented as of this encounter Plan of Treatment Not on file documented as of this encounter Visit Diagnoses Not on filedocumented in this encounter Care Teams Tying Machine Operator Lumber Relationship Specialty Start Date End Date Cely Mora MD [address] [place] [address] PCP - General 02/19/17 02/16/23 documented as of this encounter
--- OUTSIDE RECORDS SUMMARY | 2025-04-29 00:37 | XMS_ITS | Encounter Summary ---
Author Organization [facility] Address [address] [place] [address] Phone Care Team Providers Care Coding Educator Name Role Phone Cely Mora MD Primary Care Provider [phone] Encounter Details Date Type Department Care Team (Late st Contact Info) Description 05/21/2010 [place] [facility] [place] [address] [place] [address] Family Medicine, Physician [address] [place], [place] [address] Social History Tobacco Use Types Packs/Day Years [...] on filedocumented in this encounter Care Teams Coding Educator Relationship Specialty Start Date End Date Cely Mora MD [address] [place] [address] PCP - General 02/19/17 02/16/23 documented as of this encounter
--- OUTSIDE RECORDS SUMMARY | 2025-04-29 00:37 | XMS_ITS | Encounter Summary ---
Author Organization [facility] Address [address] [place] [phone] Phone Care Team Providers Care Hardware Supplies Sales Representative Name Role Phone Cely Mora MD Primary Care Provider [phone] Encounter Details Date Type Department Care Team (Late st Contact Info) Description 05/21/2010 Documentation [facility] [place] Family Medicine [address] [place] [address] Family Medicine, Physician [address] [place], [place] [phone] Social History Tobacco Use Types Packs/Day Years [...] on filedocumented in this encounter Care Teams Hardware Supplies Sales Representative Relationship Specialty Start Date End Date Cely Mora MD [address] [place] [address] PCP - General 02/19/17 02/16/23 documented as of this encounter
--- OUTSIDE RECORDS SUMMARY | 2025-04-29 00:37 | XMS_ITS | Encounter Summary ---
Author Organization [facility] Address [address] [place] [address] Phone Care Team Providers Care Investigative Agent Name Role Phone Cely Mora MD Primary Care Provider [phone] Encounter Details Date Type Department Care Team (Late st Contact Info) Description 12/15/2016 Documentation [facility] [place] Family Medicine [address] [place], [place] [id number] Family Medicine, Physician [address] [place] [address] Social History Tobacco Use Types Packs/Day Years Used Date Smoking Tobacco: Never Comments:Never smoker Sex and Gender Information Value Date Recorded Sex Assigned at Not on file Legal Sex Male 5:24 PM EDT Gender Identity Not on file Sexual Orientation Not on file documented as of this encounter Plan of Treatment Not on file documented as of this encounter Visit Diagnoses Not on filedocumented in this encounter Care Teams Investigative Agent Relationship Specialty Start Date End Date Cely Mora MD [address] [place] [address] [place] [address] PCP - General 02/19/17 02/16/23 documented as of this encounter
--- OUTSIDE RECORDS SUMMARY | 2025-04-29 00:37 | XMS_ITS | Encounter Summary ---
Author Organization [facility] Address [address] [place] [address] Phone Care Team Providers Care Precision Machinist Name Role Phone Cely Mora MD Primary Care Provider [phone] Encounter Details Date Type Department Care Team (Late st Contact Info) Description 05/20/2010 [place] [facility] [place] [address] [place] [address] Family Medicine, Physician [address] [place], [place] [address] Social History Tobacco Use Types Packs/Day Years [...] on filedocumented in this encounter Care Teams Precision Machinist Relationship Specialty Start Date End Date Cely Mora MD [address] [place] [address] PCP - General 02/19/17 02/16/23 documented as of this encounter
--- OUTSIDE RECORDS SUMMARY | 2025-04-29 00:37 | XMS_ITS | Encounter Summary ---
Author Organization [facility] Address [address] [place] [address] Phone Care Team Providers Care Neurology Physician Name Role Phone Cely Mora MD Primary Care Provider [phone] Encounter Details Date Type Department Care Team (Late st Contact Info) Description 06/01/2011 [place] [facility] [place] [address] [place] [address] Family Medicine, Physician [address] [place], [place] [address] Social History Tobacco Use Types Packs/Day Years [...] on filedocumented in this encounter Care Teams Neurology Physician Relationship Specialty Start Date End Date Cely Mora MD [address] [place] [address] PCP - General 02/19/17 02/16/23 documented as of this encounter
--- OUTSIDE RECORDS SUMMARY | 2025-04-29 00:37 | XMS_ITS | Encounter Summary ---
Author Organization [facility] Address [address] [place] [address] Phone Care Team Providers Care Tone Regulator Name Role Phone Cely Mora MD Primary Care Provider [phone] Encounter Details Date Type Department Care Team (Late st Contact Info) Description 05/09/2010 Documentation [facility] [place] Family Medicine [address] [place] [address] Family Medicine, Physician [address] [place], [place] [address] Social History Tobacco Use Types Packs/Day Years [...] on filedocumented in this encounter Care Teams Tone Regulator Relationship Specialty Start Date End Date Cely Mora MD [address] [place] [address] PCP - General 02/19/17 02/16/23 documented as of this encounter
--- OUTSIDE RECORDS SUMMARY | 2025-04-29 00:37 | XMS_ITS | Encounter Summary ---
Author Organization [facility] Address [address] [place] [address] Phone Care Team Providers Care Bridge Teacher Name Role Phone Cely Mora MD Primary Care Provider [phone] Encounter Details Date Type Department Care Team (Late st Contact Info) Description 11/23/[address] [facility] [place] Family Medicine [address] [place] [address] Family Medicine, Physician [address] [place], [place] [address] Social History Tobacco Use Types Packs/Day Years [...] on filedocumented in this encounter Care Teams Bridge Teacher Relationship Specialty Start Date End Date Cely Mora MD [address] [place] [address] PCP - General 02/19/17 02/16/23 documented as of this encounter
--- OUTSIDE RECORDS SUMMARY | 2025-04-29 00:38 | XMS_ITS | Clinical Summary ---
Author Organization [facility] Address [address] [place] [address] Phone Care Team Providers Care Ocean Export Coordinator Name Role Phone Unavailable Primary Care Provider Unavailabl e Allergies Active Allergy Reactions Criticality Noted Date Comments Cat Dander Dog Epithelium Latex Anaphylaxis High 03/31/2017 Medications cephalexin 500 MG capsule 1 7 Active oxybutynin XL 15 MG 24 hr tablet 1 7 Active triamcinolone 0.1 % creamIndications: Eczema of left upper extremity Apply topically 2 (two) times a day as needed for irritation or rash. Mix with 16oz unscented cream as discussed 80 g 1 7 Active methylphenidate (CONCERTA) 54 MG CR tabletIndications :ADHD (attention deficit hyperactivity disorder), combined type Take 1 tablet (54 mg total) by mouth every morning. 30 tablet 7 Active MONTELUKAST 10 MG tabletIndications :Mild persistent asthma without complication take 1 tablet by mouth every evening 30 tablet 12 7 Active clindamycin 1 % lotion CLINDAMYCIN PHOSPHATE; apply by topical route every 2 days a thin layer to the affected area(s); 1 %; 12/04/2016; Active 7 Active hydrOXYzine 10 MG tablet Take by mouth. 3 Active albuterol HFA (PROAIR HFA) 108 (90 BASE) MCG/ACT inhaler PROAIR HFA; inhale 2-4 puff by INHALATION route every 4 - 6 hours as needed; 90 MCG; 12/04/2016; Active 7 Active EPINEPHrine 0.3 MG/0.3ML injection syringeIndication s:Latex allergy Inject 0.3 mL (0.3 mg total) into the muscle as needed for anaphylaxis. 1 syringe Once prn anaphylaxis 2 Syringe 2 7 Active Active Problems Problem Noted Date Diagnosed Date Mild persistent asthma without complication 06/12 Overview (06/30/2017): On singulair and flovent. Rare proair use Assessment & Plan (06/30/2017 11:06 AM EST): You are doing very well on singulair and flovent with rare proair use. Neurogenic bladder 06/30/2017 Overview (06/30/2017): Now getting botox for poor bladder control and it is working well. Followed by Dr Combs. Muscle spasms of both lower extremities 06/30/20 17 Overview (06/30/2017): Recurrent muscle spasms of thighs - well controlled on medical marijuana. Also helps with anxiety and appetite. 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 Anxiety associated with depression 03/31/2017 Overview (03/31/2017): Just started in therapy with Erika Shaffer in [place] Assessment & Plan (03/31/2017 1:00 PM EDT): We discussed the import of having a regular schedule - bedtime, waking, exercise and eating well all contribute to health and well being. Continue in therapy and follow up with me as needed Constipation due to neurogenic bowel 10/15/2016 Overview (03/31/2017): Has Chiat tube. Flushes regular. 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 You are currently not in school. Assessment & Plan (03/31/2017 11:42 AM EDT): After discussion I think it makes sense for you to take concerta 54mg in the morning to see if that will help your motivation and follow through. 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 Ventricular shunt in place 10/01/2009 Immunizations Immunization Administration Dates Next Due DTaP 5 09/22/2000, 8,1996,11/13,1996 H1N1 05/23/2009 HPV, Quadrivalent 11/01/2014,03/21/2014,09/29/19 14 Hep B, ped/adol 1996,1996,1996 Hib (PRP-T) 06/25/1997, 7,1996,08/21 IPV 09/22/2000, 7,1996,08/21 Influenza Split 05/15/2013, 2,04/09/2011,03/07 Influenza, injectable, quadr ivalent, preservative free 03/31/2017,03/11/2016,02/21/2015,03/21 Influenza, injectable, trivalent 03/26/2009 MMR 09/22/2000,09/17/1997 Meningococcal Conj (Menactra) MCV4P 09/28/2013 Tdap 09/24/2008 Varicella 09/22/2007,06/25/1997 Family History Relation Name Status Comments Father Gilbert Father: Hyperte nsion, diabetes, cholesteral Mother Rosita Mother: Hyperli pidemia, Diabetes mellitus, Hypertension Other No family histo ry of *Heart Disease, No family history of *Sudden /VA under 55, No family history of *Thrombophilia, No family history of *CVA/Stroke, No family history of *Dental caries, Family history of Asthma Paternal Grandmother Mayito l grandmother: Hyperlipidemia Social History Tobacco Use Types Packs/Day Years Used Date Smoking Tobacco: Never Comments:Never smoker Sex and Gender Information Value Date Recorded Sex Assigned at Not on file Legal Sex Male 5:24 PM EDT Gender Identity Not on file Sexual Orientation Not on file Last Filed Vital Signs Vital Sign Reading Time Taken Comments Blood Pressure 130/66 06/30/2017 10:55 AM EST Pulse 89 06/30/2017 10:55 AM EST Temperature 36.8 C (98.3 F) 12/31/2016 12:00 AM EDT Respiratory Rate - - Oxygen Saturation 96% 12/31/2016 12:00 AM EDT Inhaled Oxygen Concentration - - Weight 75.8 kg (167 lb) 06/30/2017 10:55 AM EST Height 176.5 cm (5' 9.5 ) 12/31/2016 12:00 AM ED T Body Mass Index 24.31 12/31/2016 12:00 AM EDT Plan of Treatment Health Maintenance Due Date Last Done Comments DTaP,Tdap,and Td Vaccines (7 - Td or Tdap) 09/24/2018 09/24/2008, 09/22/2000, 09/17/1997, Additional history exists Influenza Vaccines (#1) 2025 03/31/20 17, 03/11/2016, 02/21/2015, Additional history exists COVID-19 Vaccine ( season) 2025 Hepatitis B Vaccines Completed 1996, 1996, 1996 HIB Vaccines Completed 06/25/1997, 12/10, 1996, Additional history exists IPV Vaccines Completed 09/22/2000, 12/10, 1996, Additional history exists MMR Vaccines Completed 09/22/2000, 09/17/1997 Varicella Vaccines Completed 09/22/2007, 06/25/1997 Meningococcal Vaccine Completed 09/28/2013 HPV Vaccines Completed 11/01/2014, 03/12, 09/28/2013 Hepatitis A Vaccines Aged Out No long er eligible based on patient's age to complete this topic Men B Vaccine Aged Out No longer elig ible based on patient's age to complete this topic Pneumococcal Vaccine Aged Out No long er eligible based on patient's age to complete this topic Insurance [facility] H[facility] NON PCC
--- OUTSIDE RECORDS SUMMARY | 2025-04-29 00:38 | XMS_ITS | Encounter Summary ---
Author Organization [facility] Address [address] [place] [address] Phone Care Team Providers Care Metal Pourer Name Role Phone Cely Mora MD Primary Care Provider [phone] Encounter Details Date Type Department Care Team (Late st Contact Info) Description 03/20/2013 Documentation [facility] [place] Family Medicine [address] [place] [address] Family Medicine, Physician [address] [place], [place] [address] Social History Tobacco Use Types Packs/Day Years [...] on filedocumented in this encounter Care Teams Metal Pourer Relationship Specialty Start Date End Date Cely Mora MD [address] [place] [address] PCP - General 02/19/17 02/16/23 documented as of this encounter
--- OUTSIDE RECORDS SUMMARY | 2025-04-29 00:38 | XMS_ITS | Encounter Summary ---
Author Organization [facility] Address [address] [place] [address] Phone Care Team Providers Care Navigation Officer Name Role Phone Cely Mora MD Primary Care Provider [phone] Encounter Details Date Type Department Care Team (Late st Contact Info) Description 02/03/2017 Documentation [facility] [place] [address] [place], [place] [phone] Family Medicine, Physician [address] [place] [address] Social History Tobacco Use Types Packs/Day Years [...] on filedocumented in this encounter Care Teams Navigation Officer Relationship Specialty Start Date End Date Cely Mora MD [address] [place] [address] [place] [address] PCP - General 02/19/17 02/16/23 documented as of this encounter
--- OUTSIDE RECORDS SUMMARY | 2025-04-29 00:38 | XMS_ITS | Encounter Summary ---
Author Organization [facility] Address [address] [place] [address] Phone Care Team Providers Care Executive Admin Name Role Phone Cely Mora MD Primary Care Provider [phone] Encounter Details Date Type Department Care Team (Late st Contact Info) Description 02/17/2017 Documentation [facility] [place] Family Medicine [address] [place], [place] [phone] Family Medicine, Physician [address] [place] [address] Social History Tobacco Use Types Packs/Day Years [...] on filedocumented in this encounter Care Teams Executive Admin Relationship Specialty Start Date End Date Cely Mora MD [address] [place] [address] [place] [address] PCP - General 02/19/17 02/16/23 documented as of this encounter
--- OUTSIDE RECORDS SUMMARY | 2025-04-29 00:38 | XMS_ITS | Encounter Summary ---
Author Organization [facility] Address [address] [place] [address] Phone Care Team Providers Care Corporate Counsel Name Role Phone Cely Mora MD Primary Care Provider [phone] Encounter Details Date Type Department Care Team (Late st Contact Info) Description 02/25/2017 Conversion Encounter [facility] [place] [address] [place] [address] Social History Tobacco Use Types Packs/Day Years [...] on filedocumented in this encounter Care Teams Corporate Counsel Relationship Specialty Start Date End Date Cely Mora MD [address] [place] [address] PCP - General 02/19/17 02/16/23 documented as of this encounter
--- OUTSIDE RECORDS SUMMARY | 2025-04-29 00:38 | XMS_ITS | Encounter Summary ---
Author Organization [facility] Address [address] [place] [address] Phone Care Team Providers Care Steam Oven Operator Name Role Phone Cely Mora MD Primary Care Provider [phone] Encounter Details Date Type Department Care Team (Late st Contact Info) Description 02/02/2017 Documentation [facility] [place] Family Medicine [address] [place], [place] [phone] Family Medicine, Physician [address] [place] [address] Social History Tobacco Use Types Packs/Day Years [...] on filedocumented in this encounter Care Teams Steam Oven Operator Relationship Specialty Start Date End Date Cely Mora MD [address] [place] [address] [place] [address] PCP - General 02/19/17 02/16/23 documented as of this encounter
--- OUTSIDE RECORDS SUMMARY | 2025-04-29 00:38 | XMS_ITS | Encounter Summary ---
Author Organization [facility] Address [address] [place] [address] Phone Care Team Providers Care Department Chair Name Role Phone Barbara Irene NP Primary Care Provider [phone] Reason for Visit * Reason Onset Date Comments COVID-19 Inquiry 02/05/2020 Encounter Details Date Type Department Care Team (Late st Contact Info) Description 02/05/2020 Telephone [facility] [address], [address] [place] [address] Navi Beasley MD [address] [address] [email or web address] COVID-19 Inquiry Social History Tobacco Use Types Packs/Day Years Used Date Smoking Tobacco: Never Smokeless Tobacco: Never Alcohol Use Standard Drinks/Week Comments Yes 0 (1 standard drink = 0.6 oz pur e alcohol) rare Sex and Gender Information Value Date Recorded Sex Assigned at Male 03/10/2019 2:31 PM EDT Legal Sex Male 2:24 PM EDT Gender Identity Male 03/10/2019 2:31 PM EDT Sexual Orientation Choose not to disclose 2018 3:21 PM EDT Occupation Industry Job Start Date Job End Date Student Not on file Not on file Not on file documented as of this encounter Plan of Treatment Not on file documented as of this encounter Visit Diagnoses Not on filedocumented in this encounter Additional Health Concerns 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 It is not the complete legal health record.[facility]
--- OUTSIDE RECORDS SUMMARY | 2025-04-29 00:38 | XMS_ITS | Encounter Summary ---
Author Organization [facility] Address [address] [place] [address] Phone Care Team Providers Care Dipper Machine Operator Name Role Phone Barbara Irene FIRE SPRINKLER INSPECTOR Primary Care Provider [phone] Bjorn Griffith MD Primary Care Provider Barbara Irene NP Primary Care Provider Encounter Details Date Type Department Care Team (Late st Contact Info) Description 03/13/2019 Procedure Pass OR Admitting Dept - Virtual Department [address] [place] [address] Social History Tobacco Use Types Packs/Day Years [...] not to disclose 2018 3:21 PM EDT documented as of this encounter Functional Status documented as of this encounter Plan of Treatment Not on file documented as of this encounter Visit Diagnoses Not on filedocumented in this encounter Additional Health Concerns Infection Onset 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 03/14/2021 02/05/2023 1:39 AM EDT documented as of this encounter Care Teams Dipper Machine Operator Relationship Specialty Start Date End Date Barbara Irene NP [address] [place] [address] [email or web address] PCP - General 03/10/19 03/19/19 Bjorn Griffith MD [address] [place] [address] [email or web address] PCP - General Internal Medicine 03/20/19 05/07/19 Barbara Irene NP [address] [place] [address] [email or web address] PCP - General 05/08/19 documented as of this encounter Additional Source Comments The information contained in this document represents components of the legal health record. It is not the complete legal health record.[facility]
--- OUTSIDE RECORDS SUMMARY | 2025-04-29 00:38 | XMS_ITS | Encounter Summary ---
Author Organization [facility] Address [address] [facility] [facility] [address] [place] [address] Phone Care Team Providers Care Piping Blocker Name Role Phone Barbara Irene NP Primary Care Provider [phone] Reason for Referral * MRI/CAT Scan - Closed Specialty Diagnoses / Procedures Referred By Contac t Referred To Contact Radiology Diagnoses Ulcer of right foot, unspecified ulcer stage Procedures MRI Foot (Right) Kraig Paez MD Phone: tel: fax: [email or web address] [address] Phone: tel: Referral ID Status Reason Start Date Expiration Date Visits Re quested Visits Authorized [id number] Closed 02/15/2020 03/16/2020 1 1 Encounter Details Date Type Department Care Team (Late st Contact Info) Description 02/12/2020 Transcribe Orders Virtual Department [address] [place] [address] Kraig Paez MD [address] [address] [email or web address] Ulcer of right foot, unspecified ulcer stage (Primary Dx) Social History Tobacco Use Types Packs/Day Years [...] on file documented as of this encounter Results * MRI FOOT WITH AND WITHOUT CONTRAST (RIGHT) (02/15/2020 9:48 AM EDT) Anatomical Region Laterality Modality Foot Right Magnetic Resonan ce 02/15/2020 9:52 AM EDT Impressions 02/15/2020 10:06 AM EDT 1.No evidence of acute osteomyelitis. 2.Persistent nonvisualization of the first digit medial sesamoid. These findings may be due to bony destruction from chronic osteoarthritis. Correlate with repeat radiographs. 3.Significant improvement in plantar forefoot soft tissue edema and first MTP plantar ulcer edema and enhancement. No abscess. Narrative 02/15/2020 10:06 AM EDT COMPARISON: Right foot MR and x-rays 03/10/2019. TECHNIQUE: Exam performed on a 1.5 Ana high-field MRI scanner. Multiplanar multisequences were obtained with and without gadolinium of the right foot. MRI RIGHT FOOT FINDINGS: Bone marrow/joint: Stable mild hallux valgus deformity and pes planus deformity. Stable calcaneonavicular joint space narrowing and spurring. No malalignment. Decrease in mild patchy marrow edema throughout the mid foot and resolution of first metatarsal base edema. Persistent focal intense marrow edema in the lateral navicular indicative of reactive marrow edema and subchondral cysts from joint disease. The first digit medial sesamoid again not identified. No abnormal marrow enhancement. Soft tissues: Significant decrease in soft tissue edema since the prior MRI. There is mild soft tissue edema within the mid and medial plantar aspect of foot. Significant decrease in soft tissue thickening, edema and enhancement at the site of the first MTP joint plantar ulcer. No soft tissue abscess or sinus tract. Chronic severe diffuse fatty muscle atrophy. Procedure Note Bruce Crockett MD - 02/15/2020 COMPARISON: Right foot MR and x-rays 03/10/2019. TECHNIQUE: Exam performed on a 1.5 Ana high-field MRI scanner.Multiplanar multisequences were obtained with and without gadolinium ofthe right foot. MRI RIGHT FOOT FINDINGS: Bone marrow/joint: Stable mild hallux valgus deformity and pes planusdeformity. Stable calcaneonavicular joint space narrowing and spurring. Nomalalignment. Decrease in mild patchy marrow edema throughout the mid footand resolution of first metatarsal base edema. Persistent focal intensemarrow edema in the lateral navicular indicative of reactive marrow edemaand subchondral cysts from joint disease. The first digit medial sesamoidagain not identified. No abnormal marrow enhancement. Soft tissues: Significant decrease in soft tissue edema since the priorMRI. There is mild soft tissue edema within the mid and medial plantaraspect of foot. Significant decrease in soft tissue thickening, edema andenhancement at the site of the first MTP joint plantar ulcer. No softtissue abscess or sinus tract. Chronic severe diffuse fatty muscleatrophy. IMPRESSION: 1.No evidence of acute osteomyelitis. 2.Persistent nonvisualization of the first digit medial sesamoid. Thesefindings may be due to bony destruction from chronic osteoarthritis.Correlate with repeat radiographs. 3.Significant improvement in plantar forefoot soft tissue edema and firstMTP plantar ulcer edema and enhancement. No abscess. 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 It is not the complete legal health record.[facility]
--- OUTSIDE RECORDS SUMMARY | 2025-04-29 00:38 | XMS_ITS | Encounter Summary ---
Author Organization [facility] Address [address] [facility] [address] [place] [address] Phone Care Team Providers Care Barber Shop Operator Name Role Phone Bjorn Griffith MD Primary Care Provider [phone] Barbara Irene NP Primary Care Provider [phone] Reason for Referral * Occupational Therapy (Routine) - Closed Specialty Diagnoses / Procedures Referred By Contchaparro velez Referred To Contact Occupational Therapy Diagnoses Spina bifida, unspecified System, Provider Not In, [facility] [address] [address] [facility] [address] [place] [address] Phone: tel: Referral ID Status Reason Start Date Expiration Date Visits Re quested Visits Authorized [id number] Closed 04/18/2019 04/17/2020 3 3 Encounter Details Date Type Department Care Team (Late st Contact Info) Description 04/18/2019 Transcribe Orders [facility] [address] [place] [address] Barbara Irene NP [address] [place], [place] [phone] Encounter for rehabilitation (Primary Dx) Social History Tobacco Use Types [...] as of this encounter Plan of Treatment Scheduled Referrals Name Type Priority Associated Diagnoses Orde r Schedule Ambulatory referral to [facility] Occupational Therapy Outpatient Referral Routine Encounter for rehabilitation Ordered: 04/18/2019 documented as of this encounter Visit Diagnoses Diagnosis Encounter for rehabilitation- Primary documented in this encounter Additional Health Concerns 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 It is not the complete legal health record.[facility]
--- OUTSIDE RECORDS SUMMARY | 2025-04-29 00:38 | XMS_ITS | Encounter Summary ---
Author Organization [facility] Address [address] [place] [address] Phone Care Team Providers Care Info Print Press Operator Name Role Phone Cely Mora MD Primary Care Provider [phone] Encounter Details Date Type Department Care Team (Late st Contact Info) Description 01/15/2017 Documentation [facility] [place] [address] [place], [place] [phone] Family Medicine, Physician [address] [place] [address] Social History Tobacco Use Types Packs/Day Years [...] on filedocumented in this encounter Care Teams Info Print Press Operator Relationship Specialty Start Date End Date Cely Mora MD [address] [place] [address] [place] [address] PCP - General 02/19/17 02/16/23 documented as of this encounter
--- OUTSIDE RECORDS SUMMARY | 2025-04-29 00:38 | XMS_ITS | Encounter Summary ---
Author Organization [facility] Address [address] [place] [address] Phone Care Team Providers Care Logistics Coordinator Name Role Phone Cely Mora MD Primary Care Provider [phone] Encounter Details Date Type Department Care Team (Late st Contact Info) Description 04/19/2012 Documentation [facility] [place] [address] [place] [address] Family Medicine, Physician [address] [place] [address] Social History Tobacco Use Types Packs/Day Years [...] on filedocumented in this encounter Care Teams Logistics Coordinator Relationship Specialty Start Date End Date Cely Mora MD [address] [place] [address] PCP - General 02/19/17 02/16/23 documented as of this encounter
--- OUTSIDE RECORDS SUMMARY | 2025-04-29 00:38 | XMS_ITS | Encounter Summary ---
Author Organization [facility] Address [address] [place] [address] Phone Care Team Providers Care Job Spotter Name Role Phone Cely Mora MD Primary Care Provider [phone] Encounter Details Date Type Department Care Team (Late st Contact Info) Description 10/14/2016 Documentation [facility] [place] Family Medicine [address] [place] [address] Family Medicine, Physician [address] [place] [address] Social History Tobacco Use Types Packs/Day Years [...] on filedocumented in this encounter Care Teams Job Spotter Relationship Specialty Start Date End Date Cely Mora MD [address] [place] [address] [place] [address] PCP - General 02/19/17 02/16/23 documented as of this encounter
--- OUTSIDE RECORDS SUMMARY | 2025-04-29 00:38 | XMS_ITS | Encounter Summary ---
Author Organization [facility] Address [address] [place] [address] Phone Care Team Providers Care Stick Inserter Name Role Phone Cely Mora MD Primary Care Provider [phone] Encounter Details Date Type Department Care Team (Late st Contact Info) Description 10/07/2016 Documentation [facility] [place] Family Medicine [address] [place] [address] Family Medicine, Physician [address] [place] [address] Social History Tobacco Use Types Packs/Day Years [...] on filedocumented in this encounter Care Teams Stick Inserter Relationship Specialty Start Date End Date Cely Mora MD [address] [place] [address] PCP - General 02/19/17 02/16/23 documented as of this encounter
--- OUTSIDE RECORDS SUMMARY | 2025-04-29 00:38 | XMS_ITS | Encounter Summary ---
Author Organization [facility] Address [address] [facility] [address] [place] [address] Phone Care Team Providers Care Sociology Professor Name Role Phone Barbara Irene HOME CARE GIVER Primary Care Provider [phone] Bjorn Griffith MD Primary Care Provider [phone] Barbara Irene NP Primary Care Provider [phone] Encounter Details Date Type Department Care Team (Late st Contact Info) Description 03/10/2019 Procedure Pass [facility], [address] [address] Social History Tobacco Use Types Packs/Day Years [...] PM EDT documented as of this encounter Plan of Treatment Not on file documented as of this encounter Visit Diagnoses Not on filedocumented in this encounter Additional Health Concerns Infection Onset 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 It is not the complete legal health record.[facility]
--- OUTSIDE RECORDS SUMMARY | 2025-04-29 00:38 | XMS_ITS | Encounter Summary ---
Author Organization [facility] Address [address] [facility] [address] [place] [address] Phone Care Team Providers Care Postpartum Rn Name Role Phone Barbara Irene PARTS PICKER Primary Care Provider [phone] Bjorn Griffith MD Primary Care Provider [phone] Barbara Irene NP Primary Care Provider [phone] Encounter Details Date Type Department Care Team (Late st Contact Info) Description 03/13/2019 Procedure Pass [place] Admitting Dept - Virtual Department [address] [place] [address] Social History Tobacco Use Types Packs/Day Years [...] documented as of this encounter Care Teams Postpartum Rn Relationship Specialty Start Date End Date Barbara Irene NP [address] [place] [address] [email or web address] PCP - General 03/10/19 03/19/19 Bjorn Griffith MD [address] [place] [address] [email or web address] PCP - General Internal Medicine 03/20/19 05/07/19 Barbara Irene NP [address] [place] [address] [email or web address] PCP - General 05/08/19 documented as of this encounter Additional Source Comments The information contained in this document represents components of the legal health record. It is not the complete legal health record.[facility]
--- OUTSIDE RECORDS SUMMARY | 2025-04-29 00:38 | XMS_ITS | Encounter Summary ---
Author Organization [facility] Address [address] [place] [address] Phone Care Team Providers Care Fiber Optic Central Office Installer Name Role Phone Cely Mora MD Primary Care Provider [phone] Encounter Details Date Type Department Care Team (Late st Contact Info) Description 06/30/2011 Documentation [facility] [place] [facility] [place] [address] [place] [address] Family Medicine, Physician [address] [place], [place] [address] Social History Tobacco Use Types Packs/Day Years [...] on filedocumented in this encounter Care Teams Fiber Optic Central Office Installer Relationship Specialty Start Date End Date Cely Mora MD [address] [place] [address] PCP - General 02/19/17 02/16/23 documented as of this encounter
--- OUTSIDE RECORDS SUMMARY | 2025-04-29 00:38 | XMS_ITS | Encounter Summary ---
Author Organization [facility] Address [address] [place] [address] Phone Care Team Providers Care Tape Maker Name Role Phone Cely Mora MD Primary Care Provider [phone] Encounter Details Date Type Department Care Team (Late st Contact Info) Description 03/03/2017 Documentation [facility] [place] Family Medicine [address] [place], [place] [id number] Family Medicine, Physician [address] [place] [address] Social History Tobacco Use Types Packs/Day Years [...] on filedocumented in this encounter Care Teams Tape Maker Relationship Specialty Start Date End Date Cely Mora MD [address] [place] [address] [place] [address] PCP - General 02/19/17 02/16/23 documented as of this encounter
--- OUTSIDE RECORDS SUMMARY | 2025-04-29 00:38 | XMS_ITS | Encounter Summary ---
Author Organization [facility] Address [address] [place] [address] Phone Care Team Providers Care Motor Tester Name Role Phone Cely Mora MD Primary Care Provider [phone] Encounter Details Date Type Department Care Team (Late st Contact Info) Description 11/05/2016 Documentation [facility] [place] Family Medicine [address] [place] [address] Family Medicine, Physician [address] [place] [address] Social History Tobacco Use Types Packs/Day Years [...] on filedocumented in this encounter Care Teams Motor Tester Relationship Specialty Start Date End Date Cely Mora MD [address] [place] [address] PCP - General 02/19/17 02/16/23 documented as of this encounter
--- OUTSIDE RECORDS SUMMARY | 2025-04-29 00:38 | XMS_ITS | Encounter Summary ---
Author Organization [facility] Address [address] [place] [address] Phone Care Team Providers Care Chief Crew Scheduler Name Role Phone Cely Mora MD Primary Care Provider [phone] Encounter Details Date Type Department Care Team (Late st Contact Info) Description 02/08/2017 Documentation [facility] [place] [address] [place], [place] [id number] Family Medicine, Physician [address] [place] [address] Social History Tobacco Use Types Packs/Day Years [...] on filedocumented in this encounter Care Teams Chief Crew Scheduler Relationship Specialty Start Date End Date Cely Mora MD [address] [place] [address] [place] [address] PCP - General 02/19/17 02/16/23 documented as of this encounter
--- OUTSIDE RECORDS SUMMARY | 2025-04-29 00:38 | XMS_ITS | Encounter Summary ---
Author Organization [facility] Address [address] [facility] [address] [place] [address] Phone Care Team Providers Care Junior Database Administrator Name Role Phone Barbara Irene NP Primary Care Provider [phone] Encounter Details Date Type Department Care Team (Late st Contact Info) Description 02/12/2020 Procedure Pass [facility] [address] [place] [address] Social History Tobacco Use Types Packs/Day Years [...] on file documented as of this encounter Last Filed Vital Signs Vital Sign Reading Time Taken Comments Blood Pressure - - Pulse - - Temperature - - Respiratory Rate - - Oxygen Saturation - - Inhaled Oxygen Concentration - - Weight 81.6 kg (180 lb) 02/12/2020 2:26 PM EDT Height 180.3 cm (5' 11 ) 02/12/2020 2:26 PM EDT Body Mass Index 25.1 02/12/2020 2:26 PM EDT documented in this encounter Plan of Treatment Not on file documented as of this encounter Visit Diagnoses Not on filedocumented in this encounter Additional Health Concerns 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 It is not the complete legal health record.[facility]
--- OUTSIDE RECORDS SUMMARY | 2025-04-29 00:38 | XMS_ITS | Encounter Summary ---
Author Organization [facility] Address [address] [place] [address] Phone Care Team Providers Care Business Continuity Management Director Name Role Phone Cely Mora MD Primary Care Provider [phone] Encounter Details Date Type Department Care Team (Late st Contact Info) Description 10/26/2016 [place] [facility] [place] [address] [place] [address] Family Medicine, Physician [address] [place] [address] Social History Tobacco Use Types Packs/Day Years [...] on filedocumented in this encounter Care Teams Business Continuity Management Director Relationship Specialty Start Date End Date Cely Mora MD [address] [place] [address] PCP - General 02/19/17 02/16/23 documented as of this encounter
--- OUTSIDE RECORDS SUMMARY | 2025-04-29 00:38 | XMS_ITS | Clinical Summary ---
Author Organization [facility] Address [address] [facility] [address] [place] [address] Phone Care Team Providers Care Scenic Artist Name Role Phone Barbara Irene NP Primary Care Provider [phone] Allergies Active Allergy Reactions Criticality Noted Date Comments Latex 03/10/2019 Medications oxybutynin (DITROPAN XL) 15 MG 24 hr tablet Take 30 mg by mouth daily. Active cephalexin (KEFLEX) 250 MG capsule Take 500 mg by mouth daily. Active nystatin cream Apply topically 2 (two) times a day. 30 g 9 Active senna (SENOKOT) 8.6 mg tablet Take 1 tablet by mouth nightly at bedtime as needed. 30 tablet 9 Active Additional Information Patient not taking.Reported on 05/08/2019 docusate sodium (COLACE) 100 MG capsule Take 1 capsule (100 mg total) by mouth 3 (three) times a day as needed for constipation. 90 capsule 9 Active Additional Information Patient not taking.Reported on 05/08/2019 oxyCODONE 5 MG immediate release tablet Take 1 tablet (5 mg total) by mouth every 6 (six) hours as needed for pain (specific location in comments). Partial fill ok 12 tablet 0 Active morphine (MSIR) 15 MG tablet Take 1 tablet (15 mg total) by mouth every 4 (four) hours as needed for pain (specific location in comments). Partial fill ok 8 tablet 1 Active Active Problems Problem Noted Date Diagnosed Date Cellulitis of right lower extremity 03/11/2019 Assessment & Plan (03/18/2019 6:52 PM EDT): MRI neg for osteomyelitis Blood cultures neg Wound debrided by Dr. Paez on 03/13 Culture performed in the ER is polymicrobial (E Coli, staph epidermidis, group B strep) ID consult appreciated recommended IV cefazolin (zosyn stopped 03/15, cefazolin started) and then discharge with cefuroxime for a total of 14 days from I&D on 03/13 Patient has had difficulty with pain management. Patient failed trial oral morphine, oral oxycodone, he has been maintained on iv dilaudid for pain management. When he was switched to oral Dilaudid this did not relieve his pain. Today narcotic medications switched to long-acting morphine with short acting for breakthrough pain. Started on Neurontin possible neuropathic pain. 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 03/12/2018 Overview (03/15/2019): Plantar, 1st MPJ, currently without offloading Status post cecostomy 02/12/2011 Overview (03/15/2019): For bowel irrigation Recurrent UTI Overview (03/15/2019): On cephalexin prophylaxis Asthma Allergic rhinitis ADD (attention deficit disorder) Resolved Problems Problem Noted Date Diagnosed Date Resolved Date Sepsis, unspecified organism 03/10/2019 03/13/2019 Encounters Date Type Department Care Team Description 04/09/2025 [facility] RISK SCORES SYSTEM GENERATED External System Generated Encounter [address] [place] [address] Unknown, Unknown, from Last 3 Months Family History Medical History Relation Comments Diabetes Father Hypertension Father Diabetes Mother Other Sister Spina bifida Occ ulta Relation Status Comments Father Alive Mother Alive Sister Alive Social History Tobacco Use Types Packs/Day Years Used Date Smoking Tobacco: Never Smokeless Tobacco: Never Alcohol Use Standard Drinks/Week Comments Yes 0 (1 standard drink = 0.6 oz pur e alcohol) rare Education Answer Date Recorded Are you interested in more education? Not on veronica e 11/06/2022 Are you concerned about learning? Not on file 11/06/2022 No 11/06/2022 No 11/06/2022 Food Answer Date Recorded Within the past 6 months we worried whether our food would run out before we got money to buy more. Never True 10/22/2024 Within the past 6 months the food we bought just didn't last and we didn't have enough money to get more. Never True Residential Stability Answer Date Recor ded What is your housing situation today? I have levon webster 10/22/2024 How many times have you moved in the past 12 mon ths? One time 10/22/2024 Paying for Meds Answer Date Recorded Do you have trouble paying for medicines? No 10/22/2024 Paying Utility Bills Answer Date Record ed Do you have trouble paying your heating or elect ricity bill? No 10/22/2024 Transportation Answer Date Recorded Has the lack of transportati on kept you from medical appointments or from getting medications? No 10/22/2024 Digital Access Answer Date Recorded No 10/22/2024 Yes 10/22/2024 Do you have reliable internet access at home? Ye s 10/22/2024 Do you have a device (e.g., phone, tablet, computer) with a working camera? Yes 10/22/2024 Intimate Partner Violence Answer Date R ecorded Are you denied basic needs s uch as food, clothing, or medical care? No 10/22/2024 In the past 12 months have y ou been in a relationship with a person who hurts, threatens, or tries to control you? No 10/22/2024 Are you denied basic needs s uch as food, clothing, or medical care? No 10/22/2024 In the past 12 months have y ou been in a relationship with a person who hurts, threatens, or tries to control you? No 10/22/2024 Sex and Gender Information Value Date Recorded Sex Assigned at Male 03/10/2019 2:31 PM EDT Legal Sex Male 2:24 PM EDT Gender Identity Male 03/10/2019 2:31 PM EDT Sexual Orientation Choose not to disclose 2018 3:21 PM EDT Occupation Industry Job Start Date Job End Date Student Not on file Not on file Not on file Last Filed Vital Signs Vital Sign Reading Time Taken Comments Blood Pressure 130/82 10/22/2024 8:12 AM EDT Pulse 86 10/22/2024 8:12 AM EDT pulse 90 Temperature 36.5 C (97.7 F) 10/22/2024 8:12 AM EDT Respiratory Rate 15 10/22/2024 8:12 AM EDT Oxygen Saturation 100% 10/22/2024 8:12 AM EDT Inhaled Oxygen Concentration - - Weight 90.7 kg (200 lb) 10/22/2024 6:38 AM EDT Height 180.3 cm (5' 11 ) 10/22/2024 6:38 AM EDT Body Mass Index 27.89 10/22/2024 6:38 AM EDT Plan of Treatment Health Maintenance Due Date Last Done Comments DEPRESSION SCREENING 2008 HEPATITIS C SCREENING 2014 HIV ONE-TIME SCREENING (18-6 5 YEARS) 2014 PNEUMOCOCCAL VACCINES (0-49 years) (1 of 2 - PCV) 2015 Adult Td,Tdap Booster 09/24/2018 09/24/2008 INFLUENZA VACCINE (#1) 2025 9, 03/11/2016, 02/21/2015 COVID-19 VACCINE (2 - 2024-2 6 season) 2025 10/09/2020 SMOKING STATUS SCREENING (On ce After 26 Yrs) Completed 03/05/2024 HEPATITIS A VACCINES Aged Out No long er eligible based on patient's age to complete this topic HIB VACCINES Aged Out No longer eligi ble based on patient's age to complete this topic MENINGOCOCCAL VACCINES (ACWY) Aged Out No longer eligible based on patient's age to complete this topic MENINGOCOCCAL VACCINES (B) Aged Out N o longer eligible based on patient's age to complete this topic Medical Devices Not on file Insurance ACO CIG PPO [facility] ACO CIGNA PPO CIGNA PPO Member Subscriber Plan / Payer (Ef fective 2023-) Name:Zeyad Saleem Relation to Subscriber:Self Name:Zeyad Saleem Payer ID:[id number] (NA) Type:PPO Address: [place] [id number] ACO CIGNA PPO ACO CIGNA PPO ACO CIGNA PPO Advance Directives For more information, please contact: [phone] (9AM - 5PM [facility], Wednesday-Wednesday) * Full Code (Presumed) (Latest Code Status on File) Date Activated Date Inactivated Comments 03/10/2019 6:07 PM 03/19/2019 5:37 PM Care Teams Scenic Artist Relationship Specialty Start Date End Date Barbara Irene NP [address] [place] [address] [email or web address] PCP - General 05/08/19 Additional Source Comments The information contained in this document represents components of the legal health record. It is not the complete legal health record.[facility]
--- OUTSIDE RECORDS SUMMARY | 2025-04-29 00:38 | XMS_ITS | Encounter Summary ---
Author Organization [facility] Address [address] [place] [address] Phone Care Team Providers Care Sleep Medicine Physician Name Role Phone Cely Mora MD Primary Care Provider [phone] Encounter Details Date Type Department Care Team (Late st Contact Info) Description 04/17/2013 Documentation [facility] [place] Family Medicine [address] [place], [place] [id number] Family Medicine, Physician [address] [place] [address] Social History Tobacco Use Types Packs/Day Years [...] on filedocumented in this encounter Care Teams Sleep Medicine Physician Relationship Specialty Start Date End Date Cely Mora MD [address] [place] [address] PCP - General 02/19/17 02/16/23 documented as of this encounter
--- OUTSIDE RECORDS SUMMARY | 2025-04-29 00:38 | XMS_ITS | Encounter Summary ---
Author Organization [facility] Address [address] [place] [address] Phone Care Team Providers Care Ticket Seller Name Role Phone Cely Mora MD Primary Care Provider [phone] Encounter Details Date Type Department Care Team (Late st Contact Info) Description 11/03/2016 Documentation [facility] Family Medicine [address] [place] [address] Family Medicine, Physician [address] [place] [address] Social History Tobacco Use Types Packs/Day Years [...] on filedocumented in this encounter Care Teams Ticket Seller Relationship Specialty Start Date End Date Cely Mora MD [address] [place] [address] PCP - General 02/19/17 02/16/23 documented as of this encounter
--- OUTSIDE RECORDS SUMMARY | 2025-04-29 00:38 | XMS_ITS | Encounter Summary ---
Author Organization [facility] Address [address] [place] [address] Phone Care Team Providers Care Turf Grower Name Role Phone Cely Mora MD Primary Care Provider [phone] Encounter Details Date Type Department Care Team (Late st Contact Info) Description 04/13/[address] [facility] [place] Family Medicine [address] [place], [place] [phone] Family Medicine, Physician [address] [place] [address] Social History Tobacco Use Types Packs/Day Years [...] on filedocumented in this encounter Care Teams Turf Grower Relationship Specialty Start Date End Date Cely Mora MD [address] [place] [address] PCP - General 02/19/17 02/16/23 documented as of this encounter
--- OUTSIDE RECORDS SUMMARY | 2025-04-29 00:38 | XMS_ITS | Encounter Summary ---
Author Organization [facility] Address [address] [place] [address] Phone Care Team Providers Care Licensed Guide Name Role Phone Cely Mora MD Primary Care Provider [phone] Encounter Details Date Type Department Care Team (Late st Contact Info) Description 02/16/2017 Documentation [facility] [place] Family Medicine [address] [place], [place] [phone] Family Medicine, Physician [address] [place] [address] Social History Tobacco Use Types Packs/Day Years [...] on filedocumented in this encounter Care Teams Licensed Guide Relationship Specialty Start Date End Date Cely Mora MD [address] [place] [address] [place] [address] PCP - General 02/19/17 02/16/23 documented as of this encounter
[2025-04-29 01:19] VITALS: BP 128/89; PULSE 91; RESP 20; TEMP 36.6; O2SAT 95
[2025-04-29 05:03] LABS: Hematocrit 42.0 % (42.0-52.0); Hemoglobin 14.4 g/dl (14.0-18.0); Imm Gran Abs Auto 0.02 X10*3/uL (0.00-0.03); Imm Gran Pct Auto 0.2 % (0.0-0.4); Lymphocytes Absolute Auto 2.1 X10*3/uL (1.2-4.9); MANUAL DIFF FLAG NO; Mean Corpuscular HGB Conc 34.3 g/dl (31.0-36.0); Mean Corpuscular Hemoglobin 30.3 pg (27.0-33.0); Mean Corpuscular Volume 88.2 fL (80.0-98.0); NRBC Abs Auto 0.000 X10*3/uL (0.0-0.012); NRBC Pct Auto 0.0 /100WBC (0.0-0.2); Platelet Count 324 X10*3/uL (160-400); Red Blood Count 4.76 X10*6/uL (4.60-5.80); White Blood Count 8.8 X10*3/uL (4.8-10.8)
[2025-04-29 05:19] LABS: Alanine Aminotransferase 40 U/L (0-40); Albumin Level 4.4 g/dL (3.5-5.0); Alkaline Phosphatase 93 U/L (39-117); Anion Gap 14 (12-20); Aspartate Amino Transferase 28 U/L (5-37); Blood Urea Nitrogen 13 mg/dL (9-16); Calcium 9.2 mg/dL (8.4-10.2); Carbon Dioxide 21 mmol/L (22-29); Chloride 106 mmol/L (96-108); Creatinine Clr Calc Pharmacy 170.2; Estimated Glomerular Filt Rate > 60; Potassium 4.0 mmol/L (3.3-5.1); Sodium 137 mmol/L (135-145); Total Protein 7.8 g/dL (6.5-8.0)
[2025-04-29] MEDS: iohexoL 350 MG/ML 100 ML INFUS..BTL IV (05:29)
[2025-04-29 06:10] VITALS: BP 128/80; PULSE 87; RESP 18; TEMP 36.5; O2SAT 95
--- NOTE | 2025-04-29 09:06 | PC.NURSE ---
pt resting, A+Ox4, calm cooperative. RR even and unlabored, no visible s/s of distress.
[2025-04-29 09:20] VITALS: BP 132/86; PULSE 93; RESP 16; O2SAT 97
[2025-04-29 09:54] VITALS: BP 132/86; PULSE 93; RESP 16; TEMP -17.7; TEMP 0; O2SAT 97
== END 2025-04-29 09:55 | disposition home or self-care (01) ==
PROVIDERS: Physician Assistant; Emergency Provider Student in an Organized Health Care Education/Training Program
DX: K94.23 Gastrostomy malfunction (principal); T18.4XXA Foreign body in colon, initial encounter; Q05.9 Spina bifida, unspecified; R00.0 Tachycardia, unspecified; R94.31 Abnormal electrocardiogram [ECG] [EKG]; W44.8XXA Other foreign body entering into or through a natural orifice, initial encounter; Y93.9 Activity, unspecified; Y92.9 Unspecified place or not applicable; Y99.8 Other external cause status; Z99.3 Dependence on wheelchair
CPT/HCPCS: 36415; 43762; 74018; 74177; 80053; 85025; 93005; 99284; 99285; Q9967

== ENCOUNTER → 2025-04-28 20:32 | Outpatient (BNV) | payer OTHER, MEDICAID, SELFPAY | PROVIDERS: Emergency Provider Student in an Organized Health Care Education/Training Program; Visit Provider Internal Medicine Cardiovascular Disease | DX: R00.0 Tachycardia, unspecified (principal) | CPT/HCPCS: 93010 ==

== ENCOUNTER → 2025-04-29 02:07 | Outpatient (BNV) | payer OTHER, MEDICAID, SELFPAY | PROVIDERS: Emergency Provider Student in an Organized Health Care Education/Training Program; Visit Provider Specialist | DX: K94.33 Esophagostomy malfunction (principal) | CPT/HCPCS: 74018; 74177 ==

== ENCOUNTER 2025-04-30 11:48 | Emergency (ER) | payer OTHER, MEDICAID, SELFPAY ==
--- NOTE | ~2025-04-30 | XR_ITS ---
EXAMINATION: XR ABDOMEN 1 VIEW (KUB) HISTORY: foreign body COMPARISON: Comparison is made with the prior examination dated 04/29/2025. FINDINGS: Two supine views of the abdomen are submitted. The bowel gas pattern is unremarkable, without evidence of mechanical obstruction. Again seen is a catheter fragment in the right lower quadrant, likely in the cecum. There are no abnormal soft tissue masses. There is spina bifida at L4 through the upper sacrum. XR/XR KUB IMPRESSION: Catheter fragment in the right lower quadrant, likely in the cecum without change. Electronically signed by: Kody Aburto MD 04/30/2025 01:17 PM EDT
[2025-04-30 13:40] VITALS: BP 148/92; PULSE 83; RESP 16; TEMP 37; O2SAT 95; BMI 29.8
--- NOTE | 2025-04-30 13:46 | ED.GENADULT ---
HPI - General Adult General Chief complaint: General Medical Stated complaint: seen recently, told to come back for xray Time Seen by Provider: 04/30/25 13:46 Source: patient Mode of arrival: ambulatory Limitations: no limitations History of Present Illness ED Provider: HPI narrative: 29-year-old male with a history of spina bifida, has had cecostomy tube placed when he was younger, has not used it for 10 years has not really followed up with a surgeon, until the Leland button holding the device in place broke off and patient presented yesterday for evaluation, he had CT and showed that the tube is in the cecum, at that point I reached out to surgery and Gastroenterology is recommendation from Dr. Trujillo for KUB x-rays 24 hours later and trying to flush it out with MiraLax. Has been in touch with the patient yesterday after his discharge and as he was drinking MiraLax he was having some leakage, as he presented today he stated that he did not have any pain he did have a somewhat normal bowel movement no other nausea vomiting fevers or chills reported. Related Data Previous Rx's ?Medication ?Instructions ?Recorded peg 3350-electrolytes 236 240 ml PO Q10M #4,000 mL 04/29/25 gram-22.74 gram-6.74 gram-5.86 gram solution (Golytely) Allergies Allergy/AdvReac Type Severity Reaction Status Date / Time latex Allergy rash Verified 04/30/25 13:44 Review of Systems Constitutional: Constitutional: Reports as per [facility] Past Medical History Medical History Asthma Spina bifida Social History Social History Alcohol intake: current Alcohol intake frequency: a few times a week Substance Use Type: Marijuana Physical Exam ED Vital Signs: Vital Signs - 24 hr 04/30/25 13:40 Temperature 98.6 F Pulse Rate 83 Respiratory Rate 16 Blood Pressure 148/92 H Pulse Oximetry 95 Oxygen Delivery Method Room Air BMI result Body Mass Index 29.8 Const Other: Patient sitting in the wheelchair, he has no complaints, speaking full sentences Medical Decision Making Medical Decision Making [facility] Narrative: 1:52 PM 04/30/2025 (Dr. Clifton Hill): I will reach out to Gastroenterology again as x-ray does not show any change with MiraLax to determine whether there was any indications for endoscopic removal on outpatient basis, Dr. Fiore is contact officer however our [employer] system is not working right now and when I try to get in touch with him the office stated that he is on his way to the hospital saw reach out to him again, patient has been updated 2:34 PM 04/30/2025 (Dr. Clifton Hill): I spoke with Dr. Fiore, discussed the case with him, he recommended that patient follow up with Dr. Wiley the surgeon who performed the procedure, I will discuss x-ray and these recommendations with the patient Consult Healthcare Provider Management of the patient was discussed with: Electromechanical Engineer (Dr. Fiore) Independent Interpretation I performed an independent interpretation of an: Plain X-Ray (The spiral tube is in the cecum) Radiology Impression Discussion of test interpretation with radiology: I have reviewed the radiologist's reading. Discharge Plan Discharge Clinical Impression: Foreign body in cecum Patient Disposition: Home, Self-Care Additional Instructions: Your x-ray showed that the catheter is still in the cecum without change, as you are aware I spoke about your case with a photogrammetric engineer in the surgeon, we follow up Gastroenterology recommendations to see if the tube can be flushed out, obviously it was not, you are not having any obstruction or any other symptoms related to this retained tube however the photogrammetric engineer I spoke with today recommended that you follow up with the provider who inserted the catheter, I suspect you will have to follow up with a [facility] team and then though make a determination what is the next appropriate steps in managing this. You are always welcome to come back to [facility] with any other issues or concerns however Prescriptions: No Action peg 3350-electrolytes [Golytely] 236-22.74-6.74 -5.86 gram recon soln 240 ml PO Q10M Qty: 4000 0RF Rx Instructions: drink 8 oz q 20 min until BM, then stop Print Language: Guyanese
--- NOTE | 2025-04-30 14:52 | PC.NURSE ---
No answer to name in waiting room at 14:52. Pt's cell phone called with no answer.
--- OUTSIDE RECORDS SUMMARY | 2025-04-30 19:05 | XMS_ITS | Encounter Summary ---
Author Organization [facility] Address [address] [place] [address] Phone Care Team Providers Care Slide Fastener Repairer Name Role Phone Cely Mora MD Primary Care Provider [phone] Encounter Details Date Type Department Care Team (Late st Contact Info) Description 11/23/2011 Documentation [facility] [place] Family Medicine [address] [place] [address] Family Medicine, Physician [address] [place] [address] Social History Tobacco Use Types Packs/Day Years [...] on filedocumented in this encounter Care Teams Slide Fastener Repairer Relationship Specialty Start Date End Date Cely Mora MD [address] [place] [address] PCP - General 02/19/17 02/16/23 documented as of this encounter
--- OUTSIDE RECORDS SUMMARY | 2025-04-30 19:05 | XMS_ITS | Encounter Summary ---
Author Organization [facility] Address [address] [place] [address] Phone Care Team Providers Care Sailing Officer Name Role Phone Cely Mora MD Primary Care Provider [phone] Encounter Details Date Type Department Care Team (Late st Contact Info) Description 05/20/2010 Documentation [facility] [address] [place] [address] Family Medicine, Physician [address] [place], [place] [address] Social History Tobacco Use Types Packs/Day Years [...] on filedocumented in this encounter Care Teams Sailing Officer Relationship Specialty Start Date End Date Cely Mora MD [address] [place] [address] PCP - General 02/19/17 02/16/23 documented as of this encounter
--- OUTSIDE RECORDS SUMMARY | 2025-04-30 19:05 | XMS_ITS | Encounter Summary ---
Author Organization [facility] Address [address] [place] [address] Phone Care Team Providers Care Background Investigator Name Role Phone Cely Mora MD Primary Care Provider [phone] Encounter Details Date Type Department Care Team (Late st Contact Info) Description 11/03/2016 Documentation [facility] [place] [address] [place] [address] Family Medicine, Physician [address] [place] [address] Social History Tobacco Use Types Packs/Day Years [...] on filedocumented in this encounter Care Teams Background Investigator Relationship Specialty Start Date End Date Cely Mora MD [address] [place] [address] PCP - General 02/19/17 02/16/23 documented as of this encounter
--- OUTSIDE RECORDS SUMMARY | 2025-04-30 19:05 | XMS_ITS | Encounter Summary ---
Author Organization [facility] Address [address] [place] [address] Phone Care Team Providers Care Criminal Judge Name Role Phone Cely Mora MD Primary Care Provider [phone] Encounter Details Date Type Department Care Team (Late st Contact Info) Description 05/21/2010 Documentation [facility] [place] Family Medicine [address] [place] [address] Family Medicine, Physician [address] [place], [place] 38[address] Social History Tobacco Use Types Packs/Day Years [...] on filedocumented in this encounter Care Teams Criminal Judge Relationship Specialty Start Date End Date Cely Mora MD [address] [place] [address] PCP - General 02/19/17 02/16/23 documented as of this encounter
--- OUTSIDE RECORDS SUMMARY | 2025-04-30 19:05 | XMS_ITS | Encounter Summary ---
Author Organization [facility] Address [address] [place] [address] Phone Care Team Providers Care Digital Asset Manager Name Role Phone Cely Mora MD Primary Care Provider [phone] Encounter Details Date Type Department Care Team (Late st Contact Info) Description 10/14/2016 Documentation [facility] [place] [address] [place] [address] Family Medicine, Physician [address] [place] [address] Social History Tobacco Use Types Packs/Day Years [...] on filedocumented in this encounter Care Teams Digital Asset Manager Relationship Specialty Start Date End Date Cely Mora MD [address] [place] [address] [place] [address] PCP - General 02/19/17 02/16/23 documented as of this encounter
--- OUTSIDE RECORDS SUMMARY | 2025-04-30 19:05 | XMS_ITS | Encounter Summary ---
Author Organization [facility] Address [address] [facility] [address] [place] [address] Phone Care Team Providers Care Public Health Outreach Worker Name Role Phone Barbara Irene FLEXOGRAPHIC PRESS OPERATOR Primary Care Provider [phone] Bjorn Griffith MD Primary Care Provider [phone] Barbara Irene NP Primary Care Provider [phone] Encounter Details Date Type Department Care Team (Late st Contact Info) Description 03/13/2019 Procedure Pass OR Admitting Dept - Virtual Department [address] [place] [address] Social History Tobacco Use Types Packs/Day Years [...] documented as of this encounter Care Teams Public Health Outreach Worker Relationship Specialty Start Date End Date Barbara Irene NP [address] [place] [address] [email or web address] PCP - General 03/10/19 03/19/19 Bjorn Griffith MD [address] [place] [address] [email or web address] PCP - General Internal Medicine 03/20/19 05/07/19 Barbara Irene NP [address] [place] [address] [email or web address] PCP - General 05/08/19 documented as of this encounter Additional Source Comments The information contained in this document represents components of the legal health record. It is not the complete legal health record.[facility]
--- OUTSIDE RECORDS SUMMARY | 2025-04-30 19:05 | XMS_ITS | Encounter Summary ---
Author Organization [facility] Address [address] [place] [address] Phone Care Team Providers Care Long Chain Beamer Name Role Phone Barbara Irene NP Primary Care Provider Encounter Details Date Type Department Care Team (Late st Contact Info) Description 04/28/2025 [facility] GENERATED External System Generated Encounter [address] [place] [address] Unknown, Unknown, Social History Tobacco Use Types Packs/Day Years [...] your housing situation today? I have levon sing 10/22/2024 How many times have you moved in the past 12 wed ths? One time 10/22/2024 Paying for Meds [...] on filedocumented in this encounter Care Teams Long Chain Beamer Relationship Specialty Start Date End Date Barbara Irene NP [address] [place] [address] [email or web address] PCP - General 05/08/19 documented as of this encounter Additional Source Comments The information contained in this document represents components of the legal health record. It is not the complete legal health record.[facility]
--- OUTSIDE RECORDS SUMMARY | 2025-04-30 19:05 | XMS_ITS | Encounter Summary ---
Author Organization [facility] Address [address] [place] [address] Phone Care Team Providers Care Industrial Psychology Teacher Name Role Phone Cely Mora MD Primary Care Provider [phone] Encounter Details Date Type Department Care Team (Late st Contact Info) Description 05/09/2010 Documentation [facility] [place] Medicine [address] [place] [address] Family Medicine, Physician [address] [place], [place] [address] Social History Tobacco Use Types Packs/Day Years [...] on filedocumented in this encounter Care Teams Industrial Psychology Teacher Relationship Specialty Start Date End Date Cely Mora MD [address] [place] [address] PCP - General 02/19/17 02/16/23 documented as of this encounter
--- OUTSIDE RECORDS SUMMARY | 2025-04-30 19:05 | XMS_ITS | Encounter Summary ---
Author Organization [facility] Address [address] [place] [address] Phone Care Team Providers Care Breast Splitter Name Role Phone Cely Mora MD Primary Care Provider [phone] Encounter Details Date Type Department Care Team (Late st Contact Info) Description 10/26/2016 Documentation [facility] [place] Family Medicine [address] [place] [address] Family Medicine, Physician [address] [place] [address] Social History Tobacco Use Types Packs/Day Years [...] on filedocumented in this encounter Care Teams Breast Splitter Relationship Specialty Start Date End Date Cely Mora MD [address] [place] [address] [place] [address] PCP - General 02/19/17 02/16/23 documented as of this encounter
--- OUTSIDE RECORDS SUMMARY | 2025-04-30 19:05 | XMS_ITS | Encounter Summary ---
Author Organization [facility] Address [address] [place] [address] Phone Care Team Providers Care Circuit Recorder Name Role Phone Cely Mora MD Primary Care Provider [phone] Encounter Details Date Type Department Care Team (Late st Contact Info) Description 12/15/2016 Documentation [facility] [place] [address] [place], [place] [address] Family Medicine, Physician [address] [place] [address] Social History Tobacco Use Types Packs/Day Years [...] on filedocumented in this encounter Care Teams Circuit Recorder Relationship Specialty Start Date End Date Cely Mora MD [address] [place] [address] [place] [address] PCP - General 02/19/17 02/16/23 documented as of this encounter
--- OUTSIDE RECORDS SUMMARY | 2025-04-30 19:05 | XMS_ITS | Encounter Summary ---
Author Organization [facility] Address [address] [place] [address] Phone Care Team Providers Care Magnetic Observer Name Role Phone Cely Mora MD Primary Care Provider [phone] Encounter Details Date Type Department Care Team (Late st Contact Info) Description 05/21/2010 Documentation [facility] [place] [address] [place] [address] Family Medicine, Physician [address] [place], [place] [address] Social History Tobacco Use Types Packs/Day Years [...] on filedocumented in this encounter Care Teams Magnetic Observer Relationship Specialty Start Date End Date Cely Mora MD [address] [place] [address] PCP - General 02/19/17 02/16/23 documented as of this encounter
--- OUTSIDE RECORDS SUMMARY | 2025-04-30 19:05 | XMS_ITS | Encounter Summary ---
Author Organization [facility] Address [address] [place] [address] Phone Care Team Providers Care Special Events Driver Name Role Phone Cely Mora MD Primary Care Provider [phone] Encounter Details Date Type Department Care Team (Late st Contact Info) Description 11/05/[address] [facility] [place] Family Medicine [address] [place] [address] Family Medicine, Physician [address] [place] [address] Social History Tobacco Use Types Packs/Day Years [...] on filedocumented in this encounter Care Teams Special Events Driver Relationship Specialty Start Date End Date Cely Mora MD [address] [place] [address] PCP - General 02/19/17 02/16/23 documented as of this encounter
--- OUTSIDE RECORDS SUMMARY | 2025-04-30 19:05 | XMS_ITS | Encounter Summary ---
Author Organization [facility] Address [address] [place] [address] Phone Care Team Providers Care Brand Mgr Name Role Phone Cely Mora MD Primary Care Provider [phone] Encounter Details Date Type Department Care Team (Late st Contact Info) Description 05/21/2010 Documentation [facility] [place] Family Medicine [address] [place] [address] Family Medicine, Physician [address] [place], [place] [address] Social History Tobacco Use Types Packs/Day Years [...] on filedocumented in this encounter Care Teams Brand Mgr Relationship Specialty Start Date End Date Cely Mora MD [address] [place] [address] PCP - General 02/19/17 02/16/23 documented as of this encounter
--- OUTSIDE RECORDS SUMMARY | 2025-04-30 19:05 | XMS_ITS | Encounter Summary ---
Author Organization [facility] Address [address] [place] [address] Phone Care Team Providers Care Assembler Clip On Sunglasses Name Role Phone Cely Mora MD Primary Care Provider [phone] Encounter Details Date Type Department Care Team (Late st Contact Info) Description 10/07/2016 Documentation [facility] [place] [address] [place] [address] Family Medicine, Physician [address] [place] [address] Social History Tobacco Use Types Packs/Day Years [...] on filedocumented in this encounter Care Teams Assembler Clip On Sunglasses Relationship Specialty Start Date End Date Cely Mora MD [address] [place] [address] PCP - General 02/19/17 02/16/23 documented as of this encounter
--- OUTSIDE RECORDS SUMMARY | 2025-04-30 19:05 | XMS_ITS | Encounter Summary ---
Author Organization [facility] Address [address] [facility] [address] [place] [address] Phone Care Team Providers Care Molecular Biology Professor Name Role Phone Barbara Irene OVERHEAD LINE WORKER Primary Care Provider [phone] Bjorn Griffith MD Primary Care Provider [phone] Barbara Irene NP Primary Care Provider [phone] Encounter Details Date Type Department Care Team (Late st Contact Info) Description 03/13/2019 Procedure Pass OR Admitting Dept - Virtual Department [address] [place] [address] Social History Tobacco Use Types Packs/Day Years [...] documented as of this encounter Care Teams Molecular Biology Professor Relationship Specialty Start Date End Date Barbara Irene NP [address] [place] [address] [email or web address] PCP - General 03/10/19 03/19/19 Bjorn Griffith MD [address] [place] [address] [email or web address] PCP - General Internal Medicine 03/20/19 05/07/19 Barbara Irene NP [address] [place] [address] [email or web address] PCP - General 05/08/19 documented as of this encounter Additional Source Comments The information contained in this document represents components of the legal health record. It is not the complete legal health record.[facility]
--- OUTSIDE RECORDS SUMMARY | 2025-04-30 19:05 | XMS_ITS | Encounter Summary ---
Author Organization [facility] Address [address] [place] [address] Phone Care Team Providers Care Concrete Buster Operator Name Role Phone Cely Mora MD Primary Care Provider [phone] Encounter Details Date Type Department Care Team (Late st Contact Info) Description 06/01/2011 Documentation [facility] [place] Family Medicine [address] [place] [address] Family Medicine, Physician [address] [place], [place] [address]87[address] Social History Tobacco Use Types Packs/Day Years [...] on filedocumented in this encounter Care Teams Concrete Buster Operator Relationship Specialty Start Date End Date Cely Mora MD [address] [place] [address] PCP - General 02/19/17 02/16/23 documented as of this encounter
--- OUTSIDE RECORDS SUMMARY | 2025-04-30 19:06 | XMS_ITS | Encounter Summary ---
Author Organization [facility] Address [address] [place] [address] Phone Care Team Providers Care Principal Statistical Scientist Name Role Phone Cely Mora MD Primary Care Provider [phone] Encounter Details Date Type Department Care Team (Late st Contact Info) Description 04/19/2012 Documentation [facility] [place] [place] Family Medicine [address] [place] [address] Family Medicine, Physician [address] [place] [address] Social History Tobacco Use Types Packs/Day Years [...] on filedocumented in this encounter Care Teams Principal Statistical Scientist Relationship Specialty Start Date End Date Cely Mora MD [address] [place] [address] PCP - General 02/19/17 02/16/23 documented as of this encounter
--- OUTSIDE RECORDS SUMMARY | 2025-04-30 19:06 | XMS_ITS | Encounter Summary ---
Author Organization [facility] Address [address] [facility] [address] [place] [address] Phone Care Team Providers Care Patient Escort Name Role Phone Barbara Irene NP Primary Care Provider [phone] Encounter Details Date Type Department Care Team (Late st Contact Info) Description 02/12/2020 Procedure Pass [facility] [address] [place] [address] Social History Tobacco Use Types Packs/Day Years [...] documented as of this encounter Care Teams Patient Escort Relationship Specialty Start Date End Date Barbara Irene NP [address] [place] [address] [email or web address] PCP - General 05/08/19 documented as of this encounter Additional Source Comments The information contained in this document represents components of the legal health record. It is not the complete legal health record.[facility]
--- OUTSIDE RECORDS SUMMARY | 2025-04-30 19:06 | XMS_ITS | Encounter Summary ---
Author Organization [facility] Address [address] [place] [address] Phone Care Team Providers Care Mail Handler Equipment Operator Name Role Phone Cely Mora MD Primary Care Provider [phone] Encounter Details Date Type Department Care Team (Late st Contact Info) Description 04/17/2013 Documentation [facility] [place] [address] [place], [place] 3286[address] Family Medicine, Physician [address] [place] [address] Social History Tobacco Use Types Packs/Day Years [...] on filedocumented in this encounter Care Teams Mail Handler Equipment Operator Relationship Specialty Start Date End Date Cely Mora MD [address] [place] [address] PCP - General 02/19/17 02/16/23 documented as of this encounter
--- OUTSIDE RECORDS SUMMARY | 2025-04-30 19:06 | XMS_ITS | Encounter Summary ---
Author Organization [facility] Address [address] [place] [address] Phone Care Team Providers Care Glass Ribbon Machine Operator Name Role Phone Cely Mora MD Primary Care Provider [phone] Encounter Details Date Type Department Care Team (Late st Contact Info) Description 02/25/2017 Conversion Encounter [facility] [place] [address] [place] [address] Social History Tobacco Use Types Packs/Day Years [...] on filedocumented in this encounter Care Teams Glass Ribbon Machine Operator Relationship Specialty Start Date End Date Cely Mora MD [address] [place] [address] PCP - General 02/19/17 02/16/23 documented as of this encounter
--- OUTSIDE RECORDS SUMMARY | 2025-04-30 19:06 | XMS_ITS | Encounter Summary ---
Author Organization [facility] Address [address] [place] [address] Phone Care Team Providers Care Safety Scientist Name Role Phone Cely Mora MD Primary Care Provider [phone] Encounter Details Date Type Department Care Team (Late st Contact Info) Description 06/30/2011 [place]ation [facility] [place] [address] [place] [address] Family Medicine, Physician [address] [place], [place] [address] Social History Tobacco Use Types Packs/Day Years [...] on filedocumented in this encounter Care Teams Safety Scientist Relationship Specialty Start Date End Date Cely Mora MD [address] [place] [address] PCP - General 02/19/17 02/16/23 documented as of this encounter
--- OUTSIDE RECORDS SUMMARY | 2025-04-30 19:06 | XMS_ITS | Encounter Summary ---
Author Organization [facility] Address [address] [place] [address] Phone Care Team Providers Care Control Panel Builder Name Role Phone Cely Mora MD Primary Care Provider [phone] Encounter Details Date Type Department Care Team (Late st Contact Info) Description 02/03/2017 Documentation [facility] [place] Family Medicine [address] [place], [place] [id number] Family Medicine, Physician [address] [place] [address] Social History Tobacco Use Types Packs/Day Years [...] on filedocumented in this encounter Care Teams Control Panel Builder Relationship Specialty Start Date End Date Cely Mora MD [address] [place] [address] [place] [address] PCP - General 02/19/17 02/16/23 documented as of this encounter
--- OUTSIDE RECORDS SUMMARY | 2025-04-30 19:06 | XMS_ITS | Encounter Summary ---
Author Organization [facility] Address [address] [facility] [address] [place] [address] Phone Care Team Providers Care Soccer Player Name Role Phone Barbara Irene MANAGER BAKERY Primary Care Provider Bjorn Griffith MD Primary Care Provider [phone] Barbara Irene NP Primary Care Provider [phone] Encounter Details Date Type Department Care Team (Late st Contact Info) Description 03/10/2019 Procedure Pass [facility], [address] [address] Social History Tobacco Use Types Packs/Day Years [...] documented as of this encounter Care Teams Soccer Player Relationship Specialty Start Date End Date Barbara Irene NP [address] [place] [address] [email or web address] PCP - General 03/10/19 03/19/19 Bjorn Griffith MD [address] [place] [address] [email or web address] PCP - General Internal Medicine 03/20/19 05/07/19 Barbara Irene NP [address] [place] [address] [email or web address] PCP - General 05/08/19 documented as of this encounter Additional Source Comments The information contained in this document represents components of the legal health record. It is not the complete legal health record.[facility]
--- OUTSIDE RECORDS SUMMARY | 2025-04-30 19:06 | XMS_ITS | Encounter Summary ---
Author Organization [facility] Address [address] [place] [address] Phone Care Team Providers Care Senior Php Software Developer Name Role Phone Cely Mora MD Primary Care Provider [phone] Encounter Details Date Type Department Care Team (Late st Contact Info) Description 01/15/2017 Documentation [facility] [place] Family Medicine [address] [place], [place] [id number] Family Medicine, Physician [address] [place] [address] Social History Tobacco Use Types Packs/Day Years [...] on filedocumented in this encounter Care Teams Senior Php Software Developer Relationship Specialty Start Date End Date Cely Mora MD [address] [place] [address] [place] [address] PCP - General 02/19/17 02/16/23 documented as of this encounter
--- OUTSIDE RECORDS SUMMARY | 2025-04-30 19:06 | XMS_ITS | Clinical Summary ---
Author Organization [facility] Address [address] [facility] [address] [place] [address] Phone Care Team Providers Care Syruper Name Role Phone Barbara Irene NP Primary Care Provider [phone] Allergies Active Allergy Reactions Criticality Noted Date [...] Encounters Date Type Department Care Team Description 04/28/2025 [facility] RISK SCORES SYSTEM GENERATED External System Generated Encounter [address] [place] [address] Unknown, MD [place] 04/09/2025 [facility] RISK SCORES SYSTEM GENERATED External System Generated Encounter [address] [place] [address] Unknown, Unknown, from Last 3 Months Family [...] Medical Devices Not on file Insurance [facility]CO [facility] PPO [facility] ACO [employer] PPO Member Subscriber Plan / Payer (Ef fective 2023-Present) Name:Zeyad Saleem Relation to Subscriber:Self Name:Zeyad Saleem Payer ID:[id number] ([facility]) Type:PPO Address: [address] [place] [id number] ACO CIGNA PPO ACO C[employer]NA PPO [facility] PPO [facility] ACO CIGNA PPO Advance Directives For more information, please contact: [phone] (9AM - 5PM [facility], Wednesday-Wednesday) * Full Code (Presumed) (Latest Code Status on File) Date Activated Date Inactivated Comments 03/10/2019 6:07 PM 03/19/2019 5:37 PM Care Teams Syruper Relationship Specialty Start Date End Date Barbara Irene NP [address] [place] [address] [email or web address] PCP - General 05/08/19 Additional Source Comments The information contained in this document represents components of the legal health record. It is not the complete legal health record.[facility]
--- OUTSIDE RECORDS SUMMARY | 2025-04-30 19:06 | XMS_ITS | Encounter Summary ---
Author Organization [facility] Address [address] [place] [address] Phone Care Team Providers Care Non Destructive Testing Technician Name Role Phone Cely Mora MD Primary Care Provider [phone] Encounter Details Date Type Department Care Team (Late st Contact Info) Description 02/17/2017 Documentation [facility] [place] Family Medicine [address] [place], [place] [phone] Family Medicine, Physician [address] [place] [address] Social History Tobacco Use Types Packs/Day Years [...] on filedocumented in this encounter Care Teams Non Destructive Testing Technician Relationship Specialty Start Date End Date Cely Mora MD [address] [place] [address] [place] [address] PCP - General 02/19/17 02/16/23 documented as of this encounter
--- OUTSIDE RECORDS SUMMARY | 2025-04-30 19:06 | XMS_ITS | Encounter Summary ---
Author Organization [facility] Address [address] [place] [address] Phone Care Team Providers Care Pasteurizing Supervisor Name Role Phone Cely Mora MD Primary Care Provider [phone] Encounter Details Date Type Department Care Team (Late st Contact Info) Description 04/13/2012 Documentation [facility] Family Medicine [address] [place], [place] [phone] Family Medicine, Physician [address] [place] [address] Social History Tobacco Use Types Packs/Day Years [...] on filedocumented in this encounter Care Teams Pasteurizing Supervisor Relationship Specialty Start Date End Date Cely Mora MD [address] [place] [address] PCP - General 02/19/17 02/16/23 documented as of this encounter
--- OUTSIDE RECORDS SUMMARY | 2025-04-30 19:06 | XMS_ITS | Encounter Summary ---
Author Organization [facility] Address [address] [place] [address] Phone Care Team Providers Care Mailroom Courier Name Role Phone Cely Mora MD Primary Care Provider [phone] Encounter Details Date Type Department Care Team (Late st Contact Info) Description 03/20/2013 Documentation [facility] [place] Family Medicine [address] [place] [address] Family Medicine, Physician [address] [place], [place] [address] Social History Tobacco Use Types Packs/Day Years [...] on filedocumented in this encounter Care Teams Mailroom Courier Relationship Specialty Start Date End Date Cely Mora MD [address] [place] [address] PCP - General 02/19/17 02/16/23 documented as of this encounter
--- OUTSIDE RECORDS SUMMARY | 2025-04-30 19:06 | XMS_ITS | Encounter Summary ---
Author Organization [facility] Address [address] [place] [address] Phone Care Team Providers Care Hair Tinter Name Role Phone Cely Mora MD Primary Care Provider [phone] Encounter Details Date Type Department Care Team (Late st Contact Info) Description 02/16/2017 Documentation [facility] [place] [address] [place], [place] [phone] Family Medicine, Physician [address] [place] [address] Social History Tobacco Use Types Packs/Day Years [...] on filedocumented in this encounter Care Teams Hair Tinter Relationship Specialty Start Date End Date Cely Mora MD [address] [place] [address] [place] [address] PCP - General 02/19/17 02/16/23 documented as of this encounter
--- OUTSIDE RECORDS SUMMARY | 2025-04-30 19:06 | XMS_ITS | Encounter Summary ---
Author Organization [facility] Address [address] [place] [address] Phone Care Team Providers Care Tuber Operator Name Role Phone Cely Mora MD Primary Care Provider [phone] Encounter Details Date Type Department Care Team (Late st Contact Info) Description 02/02/2017 Documentation [facility] [place] [address] [place], [place] [phone] Family Medicine, Physician [address] [place] [address] Social History Tobacco Use Types Packs/Day Years [...] on filedocumented in this encounter Care Teams Tuber Operator Relationship Specialty Start Date End Date Cely Mora MD [address] [place] [address] [place] [address] PCP - General 02/19/17 02/16/23 documented as of this encounter
--- OUTSIDE RECORDS SUMMARY | 2025-04-30 19:06 | XMS_ITS | Encounter Summary ---
Author Organization [facility] Address [address] [facility] [address] [place] [address] Phone Care Team Providers Care Rehabilitation Director Name Role Phone Barbara Irene NP Primary Care Provider [phone] Reason for Visit * Reason Onset Date Comments COVID-19 Inquiry 02/05/2020 Encounter Details Date Type Department Care Team (Late st Contact Info) Description 02/05/2020 Telephone [facility] Outpatient Practice [address] [facility], [address] [place] [address] Navi Beasley MD [address] [facility] [address] [facility] [address] [address] [email or web address] COVID-19 Inquiry Social History Tobacco Use Types [...] documented as of this encounter Care Teams Rehabilitation Director Relationship Specialty Start Date End Date Barbara Irene NP [address] [place] [address] [email or web address] PCP - General 05/08/19 documented as of this encounter Additional Source Comments The information contained in this document represents components of the legal health record. It is not the complete legal health record.[facility]
--- OUTSIDE RECORDS SUMMARY | 2025-04-30 19:06 | XMS_ITS | Encounter Summary ---
Author Organization [facility] Address [address] [place] [address] Phone Care Team Providers Care Home Security Alarm Installer Name Role Phone Cely Mora MD Primary Care Provider [phone] Encounter Details Date Type Department Care Team (Late st Contact Info) Description 03/03/2017 Documentation [facility] [address] [place], [place] [phone] Family Medicine, Physician [address] [place] [address] Social History Tobacco Use Types Packs/Day Years [...] on filedocumented in this encounter Care Teams Home Security Alarm Installer Relationship Specialty Start Date End Date Cely Mora MD [address] [place] [address] [place] [address] PCP - General 02/19/17 02/16/23 documented as of this encounter
--- OUTSIDE RECORDS SUMMARY | 2025-04-30 19:06 | XMS_ITS | Encounter Summary ---
Author Organization [facility] Address [address] [facility] [address] [place] [address] Phone Care Team Providers Care Fur Nailer Name Role Phone Bjorn Griffith MD Primary Care Provider [phone] Barbara Irene NP Primary Care Provider [phone] Reason for Referral * Occupational Therapy (Routine) - Closed Specialty Diagnoses / Procedures Referred By Contchaparro velez Referred To Contact Occupational Therapy Diagnoses Spina bifida, unspecified System, Provider Not In, [facility] [address] [address] [facility] [address] [place] [address] Phone: tel: Referral ID Status Reason Start Date Expiration Date Visits Re quested Visits Authorized [id number] Closed 04/18/2019 04/17/2020 3 3 Encounter Details Date Type Department Care Team (Late st Contact Info) Description 04/18/2019 Transcribe Orders [facility] [address] [place] [address] Barbara Irene NP [address] [place], [place] [phone] [email or web address] Encounter for rehabilitation (Primary Dx) Social History [...] Diagnoses Orde r Schedule Ambulatory referral to [facility] Occupational Therapy Outpatient Referral Routine Encounter for rehabilitation Ordered: 04/18/2019 documented as of this encounter Visit Diagnoses Diagnosis Encounter for rehabilitation- Primary documented in this encounter 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 It is not the complete legal health record.[facility]
--- OUTSIDE RECORDS SUMMARY | 2025-04-30 19:06 | XMS_ITS | Encounter Summary ---
Author Organization [facility] Address [address] [place] [address] Phone Care Team Providers Care Water Project Engineer Name Role Phone Cely Mora MD Primary Care Provider [phone] Encounter Details Date Type Department Care Team (Late st Contact Info) Description 02/08/2017 Documentation [facility] [place] Family Medicine [address] [place], [place] [phone] Family Medicine, Physician [address] [place] [address] Social History Tobacco Use Types Packs/Day Years [...] on filedocumented in this encounter Care Teams Water Project Engineer Relationship Specialty Start Date End Date Cely Mora MD [address] [place] [address] [place] [address] PCP - General 02/19/17 02/16/23 documented as of this encounter
--- OUTSIDE RECORDS SUMMARY | 2025-04-30 19:06 | XMS_ITS | Clinical Summary ---
Author Organization [facility] Address [address] [place] [address] Phone Care Team Providers Care Forest Fire Specialist Supervisor Name Role Phone Unavailable Primary Care Provider [...] Overview (06/30/2017): [place] eye doc [place] has glasses for reading. Anxiety associated with depression 03/31/2017 Overview (03/31/2017): Just started in therapy with Erika Shaffer in [place] Assessment & Plan (03/31/2017 1:00 PM EDT): [...] *Heart Disease, No family history of *Sudden /PR under 55, No family history of *Thrombophilia, [...] patient's age to complete this topic Insurance [facility] HMO [facility] NON PCC
--- OUTSIDE RECORDS SUMMARY | 2025-04-30 19:06 | XMS_ITS | Encounter Summary ---
Author Organization [facility] Address [address] [facility] [address] [place] [address] Phone Care Team Providers Care Tray Packer Name Role Phone Barbara Irene NP Primary Care Provider Reason for Referral * MRI/CAT Scan - Closed Specialty Diagnoses / Procedures Referred By Contac t Referred To Contact Radiology Diagnoses Ulcer of right foot, unspecified ulcer stage Procedures MRI Foot (Right) Kraig Paez MD Phone: tel: fax: [email or web address] [address] Phone: tel: Referral ID Status Reason Start Date Expiration Date Visits Re quested Visits Authorized [id number] Closed 02/15/2020 03/16/2020 1 1 Encounter Details Date Type Department Care Team (Late st Contact Info) Description 02/12/2020 Transcribe Orders Virtual Department [address] [place] [address] Kraig Paez MD [address] [address] [email or web address] Ulcer of right foot, unspecified ulcer stage [...] documented as of this encounter Care Teams Tray Packer Relationship Specialty Start Date End Date Barbara Irene NP [address] [place] [address] [email or web address] PCP - General 10/28/19 documented as of this encounter Additional Source Comments The information contained in this document represents components of the legal health record. It is not the complete legal health record.[facility]
== END 2025-04-30 15:09 | disposition home or self-care (01) ==
LOC: HO.ED 14:53
PROVIDERS: Emergency Provider Emergency Medicine; PCP Family Medicine
DX: T18.4XXA Foreign body in colon, initial encounter (principal); W44.8XXA Other foreign body entering into or through a natural orifice, initial encounter; Y93.9 Activity, unspecified; Y92.9 Unspecified place or not applicable
CPT/HCPCS: 74018; 99281; 99283

== ENCOUNTER → 2025-04-30 11:52 | Outpatient (BNV) | payer OTHER, MEDICAID, SELFPAY | PROVIDERS: Emergency Provider Emergency Medicine; PCP Family Medicine; Visit Provider Radiology Diagnostic Radiology | DX: T18.8XXA Foreign body in other parts of alimentary tract, initial encounter (principal) | CPT/HCPCS: 74018 ==